=== PATIENT | male | born 1965 | race Caucasian/White ===

== ENCOUNTER 2017-04-18 23:46 | Observation (INO) ==
--- NOTE | 2017-04-19 00:08 | Emergency Department Note ---
Disposition Clinical Impression: Hallucinations Schizophrenia Qualifiers: Schizophrenia type: other Qualified Code(s): F20.89 - Other schizophrenia Disposition: Admitted As Inpatient Condition: Good Referrals: NONE,PCP [Primary Care Provider] - Time of Disposition: 17:40 General Adult HPI - General Chief complaint: ED Psychiatric Symptoms Stated complaint: hallucinations Time Seen by Provider: 04/18/17 23:52 Source: patient, EMS Limitations: no limitations Nursing Notes Reviewed: Yes Vital Signs Reviewed: Yes - History of Present Illness HPI Narrative: 51-year-old male who reports that he has been hearing auditory hallucinations over the last couple of days. He does have a history of schizophrenia and says he has had these before. He is been out of his medications and his out-of- state. He denies any suicidal or homicidal ideation. He states that he otherwise feels well aside from the hallucinations. Denies having any fever or abdominal pain. No nausea or vomiting. He denies having any other significant medical history. Radiation: non-radiation Pain Scale: 0 Improves with: nothing Worsens with: nothing Associated symptoms: Reports: denies other symptoms Treatments Prior to Arrival: none - Related Data Allergies Allergy/AdvReac Type Severity Reaction Status Date / Time No Known Allergies Allergy Verified 04/18/17 23:49 All systems ED: reviewed and negative except as stated. Constitutional: Denies: fever ENT ED: Denies: throat pain Cardiovascular: Denies: chest pain Gastrointestinal: Denies: abdominal pain, nausea, vomiting Genitourinary: Denies: dysuria Musculoskeletal: Denies: back pain Neurological: Denies: headache Endocrine: Denies: fatigue Past Medical History - Past Medical History Medical history: Reports: diabetes, hyperlipidemia, hypertension Psychiatric history: Reports: anxiety, schizophrenia - Social History Smoking Status: Never smoker Alcohol use: Reports: none Drug use: Reports: none Physical Exam - General Limitations: no limitations General appearance: alert, in no apparent distress - Head Head exam: atraumatic - Eye Eye exam: Present: normal appearance, PERRL - ENT ENT exam: normal exam, normal oropharynx - Neck Neck exam: Present: normal inspection, full ROM - Chest Chest inspection: Present: normal inspection - Respiratory Respiratory exam: Present: normal lung sounds bilaterally. Absent: respiratory distress - Cardiovascular Cardiovascular exam: Present: regular rate, normal rhythm - Abdominal Exam Abdominal exam: Present: soft, Non-Tender - Extremities Exam Extremities exam: Present: normal inspection - Neurological Exam Neurological exam: Present: alert, oriented X3 - Psychiatric Psychiatric exam: Present: anxious - Skin Skin exam: Present: warm, dry Course Course Narrative: Will do medical clearance and have psychiatry evaluation Clear for psychiatry evaluation. [address]. This patient has been signed out to the day team to follow up on 1A placement. Vital Signs Temperature 97.6 F 04/18/17 23:50 Pulse Rate 98 04/18/17 23:50 Respiratory Rate 18 04/18/17 23:50 Blood Pressure 136/97 04/18/17 23:50 O2 Sat by Pulse Oximetry 95 04/18/17 23:50 Temperature 97.6 F 04/18/17 23:50 Pulse Rate 98 04/18/17 23:50 Respiratory Rate 18 04/18/17 23:50 Blood Pressure 136/97 04/18/17 23:50 O2 Sat by Pulse Oximetry 95 04/18/17 23:50 Oxygen Delivery Oxygen Delivery Room Air Medical Decision Making - MDM Narrative Medical decision making narrative: Patient was signed out to me by the day physician. Patient came in last evening with schizophrenia issues. Patient was unable to be admitted to psychiatric unit here. They feel he needs placed at a facility in [place] where he lives. Patient is not stable enough immensely to take a [employer] bus back all the way to [place]. Plan at this time is to admit the patient to the hospital for social concerns and then placement tomorrow at a facility in [place]. Social workers following and that was the recommendation as well. We rechecked a blood glucose and it was in the 300s. Patient appears well. No issues at this time. - Medical Records Medical records reviewed: Yes I reviewed the patient's medical records. - Lab Data Lab results reviewed: Yes I reviewed the patient's lab results. Result diagrams: 04/19/17 00:15 04/19/17 00:15 Lab Results 04/19/17 04/19/17 04/19/17 Range/Units 00:15 00:15 00:22 WBC 9.7 (4.3-11.1) K/mcL RBC 5.00 (4.19-5.50) M/mcL Hgb 15.1 (12.9-16.9) g/dL Hct 44.6 (37.5-50.1) % MCV 89.2 (83.0-100.0) fL MCH 30.2 (28.0-33.3) pg MCHC 33.9 (31.6-35.5) g/dL RDW 13.5 (11.5-14.5) % Plt Count 250 (140-400) K/mcL MPV 9.5 (9.4-12.4) fL Immature Gran % 0.5 (0-4) % Seg Neutrophils % 72.7 % Lymphocytes % 14.8 % Monocytes % 9.7 % Eosinophils % 1.8 % Basophils % 0.5 % Neutrophils # 7.1 (1.6-8.9) K/mcL Lymphocytes # 1.4 (0.6-4.6) K/mcL Monocytes # 0.9 (0.0-1.3) K/mcL Eosinophils # 0.2 (0.0-0.6) K/mcL Basophils # 0.1 (0.0-0.2) K/mcL Sodium 136 (136-145) mEq/L Potassium 3.9 (3.5-4.5) mEq/L Chloride 98 (98-109) mEq/L Carbon Dioxide 25 (19-29) mEq/L BUN 14 (8-26) mg/dL Creatinine 1.02 (0.72-1.25) mg/dL Est GFR ( Amer) > 60 (> 60) Est GFR (Non-Af Amer) > 60 (> 60) BUN/Creatinine Ratio 14 (6-26) Glucose 319 H (70-99) mg/dL POC Glucose (58-89) Calculated Osmolality 295 (280-300) Calcium 10.2 (8.6-10.8) mg/dL Urine Color Yellow (Yellow) Urine Clarity Clear (Clear) Urine pH 6.5 (5.0-8.0) pH Units Ur Specific [place] > 1.030 H (1.010-1.025) Urine Protein 100 H (Neg-Trace) mg/dL Urine Glucose (UA) >=1000 H (Normal) mg/dL Urine Ketones Negative (Negative) mg/dL Urine Blood Negative (Negative) Urine Nitrite Negative (Negative) Urine Bilirubin Negative (Negative) Urine Urobilinogen Normal (Normal) mg/dL Ur Leukocyte Esterase Negative (Negative) Urine Microscopic RBC 0-3 (0-3) per hpf Urine Microscopic WBC 0-3 (0-3) per hpf Ur Squamous Epith Cells Many H (None-Few) per lpf Urine Bacteria Few (None-Few) per hpf Hyaline Casts None Seen (None-Few) per lpf Salicylates < 5.0 L (15-30) mg/dL Urine Opiates Screen (Lzmctz=774) ng/mL Acetaminophen < 1.0 L (10-30) mcg/mL Ur Barbiturates Screen (Jvxeso=836) ng/mL Ur Phencyclidine Scrn (Cutoff=25) ng/mL Ur Amphetamines Screen (Cugilr=7561) ng/mL U Benzodiazepines Scrn (Tmbwmr=690) ng/mL Urine Cocaine Screen (Cutoff= 300) ng/mL U Marijuana (THC) Screen (Cutoff = 50) ng/mL Ethyl Alcohol < 10 (0-10) mg/dL 04/19/17 04/19/17 Range/Units 00:22 17:22 WBC (4.3-11.1) K/mcL RBC (4.19-5.50) M/mcL Hgb (12.9-16.9) g/dL Hct (37.5-50.1) % MCV (83.0-100.0) fL MCH (28.0-33.3) pg MCHC (31.6-35.5) g/dL RDW (11.5-14.5) % Plt Count (140-400) K/mcL MPV (9.4-12.4) fL Immature Gran % (0-4) % Seg Neutrophils % % Lymphocytes % % Monocytes % % Eosinophils % % Basophils % % Neutrophils # (1.6-8.9) K/mcL Lymphocytes # (0.6-4.6) K/mcL Monocytes # (0.0-1.3) K/mcL Eosinophils # (0.0-0.6) K/mcL Basophils # (0.0-0.2) K/mcL Sodium (136-145) mEq/L Potassium (3.5-4.5) mEq/L Chloride (98-109) mEq/L Carbon Dioxide (19-29) mEq/L BUN (8-26) mg/dL Creatinine (0.72-1.25) mg/dL Est GFR ( Amer) (> 60) Est GFR (Non-Af Amer) (> 60) BUN/Creatinine Ratio (6-26) Glucose (70-99) mg/dL POC Glucose 316 H (58-89) Calculated Osmolality (280-300) Calcium (8.6-10.8) mg/dL Urine Color (Yellow) Urine Clarity (Clear) Urine pH (5.0-8.0) pH Units Ur Specific [place] (1.010-1.025) Urine Protein (Neg-Trace) mg/dL Urine Glucose (UA) (Normal) mg/dL Urine Ketones (Negative) mg/dL Urine Blood (Negative) Urine Nitrite (Negative) Urine Bilirubin (Negative) Urine Urobilinogen (Normal) mg/dL Ur Leukocyte Esterase (Negative) Urine Microscopic RBC (0-3) per hpf Urine Microscopic WBC (0-3) per hpf Ur Squamous Epith Cells (None-Few) per lpf Urine Bacteria (None-Few) per hpf Hyaline Casts (None-Few) per lpf Salicylates (15-30) mg/dL Urine Opiates Screen Negative (Zknhbh=176) ng/mL Acetaminophen (10-30) mcg/mL Ur Barbiturates Screen Negative (Ijkazy=386) ng/mL Ur Phencyclidine Scrn Negative (Cutoff=25) ng/mL Ur Amphetamines Screen Negative (Jzakty=1286) ng/mL U Benzodiazepines Scrn Negative (Hzyzpy=417) ng/mL Urine Cocaine Screen Negative (Cutoff= 300) ng/mL U Marijuana (THC) Screen Negative (Cutoff = 50) ng/mL Ethyl Alcohol (0-10) mg/dL Attestation Statement - Attestation Attestation: I examined this patient and my medical decision-making was reviewed with the Resident Physician. I agree with the documented findings, disposition and treatment plan as described except to the extent set forth below. Acute psychosis. Patient has history of schizophrenia. Plan to discuss disposition with psychiatry after consultation in the morning with the attending psychiatrist in [place]. Patient was placed on a medical hold at the request of our on-call psychiatrist.
[2017-04-19 00:21] LABS: Basophils # 0.1 K/mcL (0.0-0.2); Basophils % 0.5 %; Eosinophils # 0.2 K/mcL (0.0-0.6); Eosinophils % 1.8 %; Hematocrit 44.6 % (37.5-50.1); Hemoglobin 15.1 g/dL (12.9-16.9); Immature Granulocytes % 0.5 % (0-4); Lymphocytes # 1.4 K/mcL (0.6-4.6); Lymphocytes % 14.8 %; Mean Corpuscular HGB Conc 33.9 g/dL (31.6-35.5); Mean Corpuscular Hemoglobin 30.2 pg (28.0-33.3); Mean Corpuscular Volume 89.2 fL (83.0-100.0); Mean Platelet Volume 9.5 fL (9.4-12.4); Monocytes # 0.9 K/mcL (0.0-1.3); Monocytes % 9.7 %; Neutrophils # 7.1 K/mcL (1.6-8.9); Platelet Count 250 K/mcL (140-400); Red Cell Distribution Width 13.5 % (11.5-14.5); Segmented Neutrophils % 72.7 %
[2017-04-19 00:32] LABS: BUN/Creatinine Ratio 14 (6-26); Blood Urea Nitrogen 14 mg/dL (8-26); Calcium 10.2 mg/dL (8.6-10.8); Carbon Dioxide 25 mEq/L (19-29); Chloride 98 mEq/L (98-109); Glucose 319 mg/dL (70-99); Osmolality,Calculated 295 (280-300); Potassium 3.9 mEq/L (3.5-4.5); Sodium 136 mEq/L (136-145); eGFR For African Americans > 60 (> 60); eGFR For Non-African Americans > 60 (> 60)
[2017-04-19 00:34] LABS: Bilirubin,Urine Negative (Negative); Blood,Urine Negative (Negative); Clarity,Urine Clear (Clear); Color,Urine Yellow (Yellow); Glucose,Urine (UA) >=1000 mg/dL (Normal); Ketones,Urine Negative (Negative); Leukocyte Esterase,Urine Negative (Negative); Nitrite,Urine Negative (Negative); PH,Urine 6.5 pH Units (5.0-8.0); Protein,Urine 100 mg/dL (Neg-Trace); Specific Gravity,Urine > 1.030 (1.010-1.025); Urobilinogen,Urine Normal (Normal)
[2017-04-19 00:35] LABS: Hyaline Casts,Urine None Seen per lpf (None-Few); RBC,Urine 0-3 per hpf (0-3); Squamous Epithelial Cell,Urine Many per lpf (None-Few); WBC,Urine 0-3 per hpf (0-3)
[2017-04-19 00:39] LABS: Amphetamine Screen,Urine Negative ng/mL (Cutoff=1000); Barbiturate Screen,Urine Negative ng/mL (Cutoff=200); Benzodiazepines Screen,Urine Negative ng/mL (Cutoff=200); Cannabinoid Screen,Urine Negative ng/mL (Cutoff = 50); Cocaine Screen,Urine Negative ng/mL (Cutoff= 300); Opiate Screen,Urine Negative ng/mL (Cutoff=300); Phencyclidine Screen,Urine Negative ng/mL (Cutoff=25)
[2017-04-19 00:46] LABS: Bacteria,Urine Few per hpf (None-Few)
[2017-04-19 01:27] LABS: Acetaminophen < 1.0 mcg/mL (10-30); Ethanol < 10 mg/dL (0-10); Salicylate < 5.0 mg/dL (15-30)
[2017-04-19] MEDS ORDERED: OLANZapine 10 MG VIAL IM ONE (05:23)
[2017-04-19] MEDS ORDERED: Acetaminophen 325 MG TABLET PO PRN (21:10)
[2017-04-19] MEDS ORDERED: *HR* HYDROcodone/Acet 5/325 mg TABLET PO PRN (21:10)
[2017-04-19] MEDS ORDERED: *HR* Morphine 2 MG/ML SYRINGE IVP PRN (21:10)
[2017-04-19] MEDS ORDERED: Naloxone 0.4 MG/ML INJ IVP PRN (21:10)
[2017-04-19] MEDS ORDERED: *HR* Promethazine 25 MG/ML VIAL IVP PRN (21:15)
[2017-04-19] MEDS ORDERED: Ondansetron 4 MG/2 ML VIAL IVP PRN (21:15)
[2017-04-19] MEDS ORDERED: *HR* LORazepam 0.5 MG TABLET PO PRN (21:17)
--- NOTE | 2017-04-19 21:31 | Internal Med History&Physical ---
Date of Encounter: 04/19/17 Time of Encounter: 20:30 Assessment and Plan (1) Hallucinations Current visit: Yes Status: Acute Place the pt into Med Surg for observation Cont symptomatic and supportive care SW consulted Will consult Pysch 1 on 1 sitter Reviewed labs - normal WBC, normal electrolytes (2) Schizophrenia Current visit: Yes Status: Acute Will give Ativan and Haldol PRN for agitation cont close monitoring Psych consulted Qualifiers: Schizophrenia type: unspecified Qualified Code(s): F20.9 - Schizophrenia, unspecified (3) HTN (hypertension) Current visit: Yes Status: Acute Stable with out any meds cont close monitoring Qualifiers: Hypertension type: essential hypertension Qualified Code(s): I10 - Essential (primary) hypertension (4) DM2 (diabetes mellitus, type 2) Current visit: Yes Status: Acute will check HbA1C in AM will put him on ISS Qualifiers: Qualified Code(s): E11.9 - Type 2 diabetes mellitus without complications Internal Medicine - H&P: HPI Chief complaint: Auditory hallucinations Admitted From: Emergency Dept Plans for Post Hospital Care: Home History of present illness: Mr. Plummer is a 51 year old male with known PMH of HTN, DM2, GERD, Schizophrenia who is from [place] presented to our ER on 04/18/17 with auditory hallucinations. Pt was not able to go back to [place] by himself and SW working on his case. [facility] ER asked use to admit this pt into medical floor until SW can find a place for him. When I examined the pt at bed side, he is alert, awake and oriented to place and person. He does live by himself in [place], his mother does not want to take him back due to his hallucinations. He did mention that, he started hearing voice 2 days ago, so he took a [employer] bus to [place] and from there he came to [place] by following the voices. He denied any suicidal thoughts / ideation as well as any homicidal ideations. Still has auditory hallucinations Past Med Surg Social Fam HX - Past Medical History Medical history: diabetes, hyperlipidemia, hypertension Psychiatric history: anxiety, schizophrenia - Social History Smoking Status: Never smoker Alcohol use: none Drug use: none - Additional Family History Additional family history: Family hsitory reviewed and non contribuitory to current problem. Internal Medicine - H&P: Meds 3 Allergy/AdvReac Type Severity Reaction Status Date / Time No Known Allergies Allergy Verified 04/18/17 23:49 All Systems PM: A 10-system review of systems was performed and is negative for pertinent findings except as documented above in the HPI. Review of systems: All the systems are reviewed everything is benign except the systems and symptoms I mentioned in the history of present illness - Constitutional Vitals: Temp Pulse Resp BP Pulse Ox 97.6 F 98 18 136/97 95 04/18/17 23:50 04/18/17 23:50 04/18/17 23:50 04/18/17 23:50 04/18/17 23:50 General appearance: Present: A&O X 3, no acute distress, answers questions appropriately - Head Head exam: Present: atraumatic, normal inspection - Neck Neck exam general surgery: Present: supple - Respiratory Respiratory exam: Present: CTAB. Absent: accessory muscle use, rales, rhonchi, wheezes - Cardiovascular Cardiovascular exam: Present: RRR, +S1, +S2. Absent: diastolic murmur, gallop, rubs, systolic murmur - GI/Abdominal GI/Abdominal exam: Present: normal bowel sounds, soft. Absent: rebound, rigid, tenderness - Extremities Exam Extremities exam: Absent: calf tenderness, pedal edema, tenderness - Back Exam Back exam: Absent: CVA tenderness (L), CVA tenderness (R) - Neurological Exam Neurological exam: Present: alert, oriented X3 - Psychiatric Psychiatric exam: Present: anxious. Absent: homicidal ideation, suicidal ideation - Expanded Psychiatric Exam Focused psych exam: Present: restlessness. Absent: paranoid, pressured speech - Skin Skin exam: Absent: rash Internal Med - H&P Results - Labs CBC & Chem 7: 04/19/17 00:15 04/19/17 00:15 Labs: Short CBC 04/19/17 Range/Units 00:15 WBC 9.7 (4.3-11.1) K/mcL Hgb 15.1 (12.9-16.9) g/dL Hct 44.6 (37.5-50.1) % Plt Count 250 (140-400) K/mcL Neutrophils # 7.1 (1.6-8.9) K/mcL BMP 04/19/17 00:15 Sodium 136 Potassium 3.9 Chloride 98 Carbon Dioxide 25 BUN 14 Creatinine 1.02 Glucose 319 H Calcium 10.2 Urine 04/19/17 Range/Units 00:22 Urine Color Yellow (Yellow) Urine Clarity Clear (Clear) Urine pH 6.5 (5.0-8.0) pH Units Ur Specific [place] > 1.030 H (1.010-1.025) Urine Protein 100 H (Neg-Trace) mg/dL Urine Glucose (UA) >=1000 H (Normal) mg/dL
[2017-04-19] MEDS ORDERED: Dextrose Gel 15 GM PO PRN ×2 (21:40)
[2017-04-19] MEDS ORDERED: *HR* Dextrose 50 % in Water (Syg) 50 ML SYRINGE IVP PRN (21:40)
[2017-04-19] MEDS ORDERED: D5% in Water 1,000 ML IVC PRN (21:40)
[2017-04-19] MEDS ORDERED: Insulin LISPRO 300 UNITS/3 ML VIAL SQ SCH (21:45)
[2017-04-19 22:27] LABS: Hemoglobin A1C 8.4 %
[2017-04-20] MEDS: Insulin LISPRO 300 UNITS/3 ML VIAL SQ SCH ×4 (08:46→21:34)
--- NOTE | 2017-04-20 16:08 | Consult Note ---
Date of Encounter: 04/20/17 Time of Encounter: 15:00 Assessment & Recommendation (1) Neuroleptic-induced tardive dyskinesia Current visit: Yes Status: Acute Assessment & Recommendation: This patient has features of neuroleptic induced tardive dyskinesia. He is on a stable regimen of medicines and needs to remain on antipsychotics. Therefore it is necessary to restart all of his antipsychotics. Consistency of the antipsychotics may reduce the dyskinetic movements. He is not a candidate to reduce antipsychotics or discontinue antipsychotics as he has a chronic psychiatric illness and the exacerbation is likely. The patient could be considered for Ingrezza or Autedo valbenezine or duetetrabenezine to medicines that are FDA approved for the treatment of tardive dyskinesia. These may help with oral buccal movements and the distal dyskinetic and choreiform movements . (2) Schizophrenia Current visit: Yes Status: Acute Assessment & Recommendation: The patient has paranoid schizophrenia with multiple auditory hallucinations. He tends to follow these with delusional conviction. It is important to return him to his snf although he resists this. It is necessary therefore to check and see if he has a legal guardian in the [facility]. This would allow for him to return. The history that I have suggest that he has left for other states and been retrieved by the snf to return. It is not clear that he has any family or friends in [place] who could aid her system furthermore psychotic decompensation is more likely in this environment than his home environment. Difficulty in the hospitalization is has been encountered. This patient may need to be transferred to a [facility] such [facility] and then [facility] transfer could be arranged between the [facility] in [place] in [place]. The patient is a voluntary patient requesting to stay in [place]. It is not clear if he has decision-making capacity. There is therefore it is necessary to check up he has a legal guardian in [place]. Please restart the home medicines that are listed at a minimum we can begin Seroquel 300 mg every morning and 600 mg every afternoon and Tegretol 200 mg 3 times a day. A blood level for Tegretol or carbamazepine can be obtained in the next week efforts to reach next of kin have already commenced but should continue Qualifiers: Schizophrenia type: paranoid schizophrenia Qualified Code(s): F20.0 - Paranoid schizophrenia History of Present Illness Requesting Physician: Monisha Khan CNP Reason for consult: History of present illness: Mr. Plummer is a 51 year old male The patient was admitted for auditory hallucinations. History of present illness. I was contacted when the patient presented for admission. He had doubled from his home in [facility] to [place]. He recalls being here many years ago. In 2000 the patient may have developed psychosis and tomasz been treated on one [place] similar unit. The patient cannot find his family cannot locate them. He hears voices and he believes that these are people that he knows and these voices are truly denies that they are related to his imagination. Nonetheless he has conversations avoids eating stays up late and responsive. These are command hallucinations and the commanded him to come to [place] which he complied with. The patient agreed to stay and efforts been made to transfer him back to [facility] where he lives. Apparently he lives in a snf and has a psychiatrist treating him there. He has [facility] and efforts to admit him to another hospital were not helpful. While the patient is willing to stay on the medical floor he is asking to relocate [place]. The patient identifies voices and he can identify his dose of medicine. Specifically he takes Seroquel 300 mg every morning 600 mg every afternoon he takes Tegretol probably 200 mg 3 times a day. He has not been on any other medicines. Over the intervening years that the patient has developed movements The mouth and tongue in the fingers. he has a mouth sore associated with this and has been reported to have protruding tongue movements. He cannot recall being diagnosed with tardive dyskinesia CC: Monisha Khan CNP Past Med Surg Social Fam HX - Past Medical History Medical history: diabetes, hyperlipidemia, hypertension - Social History Smoking Status: Never smoker Alcohol use: none Drug use: none Medications & Allergies Docusate Sodium [Dok] 100 mg PO 1-2XD 04/20/17 [History] Paliperidone [Invega] 6 mg PO QAM 04/20/17 [History] Quetiapine Fumarate [Seroquel] 600 mg PO HS 04/20/17 [History] Trazodone HCl 150 mg PO HS 04/20/17 [History] carBAMazepine [Tegretol] 400 mg PO BID 04/20/17 [History] 3 Allergy/AdvReac Type Severity Reaction Status Date / Time No Known Allergies Allergy Verified 04/18/17 23:49 Mental Status Exam Patient orientation: Yes Person, Yes Time, Yes Place, Yes Circumstance Level of alertness: Alert Patient appearance: Appropriate Behavior: restless, distractible Psychomotor activity: Increased Eye contact: Maintains Eye Contact Mood description: Anxious Speech pattern: Normal rhythm Speech volume: Normal Thought process: [place] Thought content: Yes Paranoid delusion Perceptual disturbances: Yes Auditory hallucinations Attention span: Capable of Sustained Attention Memory description: Immediate Intact, Remote Impaired Patient reliability: Questionable Historian Intelligence estimate: Average Judgment: Limited Insight: Minimal Results - Vital Signs Vital signs: Temp Pulse Resp BP Pulse Ox 97.9 F 96 16 140/89 96 04/20/17 15:36 04/20/17 15:36 04/20/17 15:36 04/20/17 15:36 04/20/17 15:36 - Labs Labs: Laboratory Last Values WBC 9.7 K/mcL (4.3-11.1) 04/19/17 00:15 RBC 5.00 M/mcL (4.19-5.50) 04/19/17 00:15 Hgb 15.1 g/dL (12.9-16.9) 04/19/17 00:15 Hct 44.6 % (37.5-50.1) 04/19/17 00:15 MCV 89.2 fL (83.0-100.0) 04/19/17 00:15 MCH 30.2 pg (28.0-33.3) 04/19/17 00:15 MCHC 33.9 g/dL (31.6-35.5) 04/19/17 00:15 RDW 13.5 % (11.5-14.5) 04/19/17 00:15 Plt Count 250 K/mcL (140-400) 04/19/17 00:15 MPV 9.5 fL (9.4-12.4) 04/19/17 00:15 Immature Gran % 0.5 % (0-4) 04/19/17 00:15 Seg Neutrophils % 72.7 % 04/19/17 00:15 Lymphocytes % 14.8 % 04/19/17 00:15 Monocytes % 9.7 % 04/19/17 00:15 Eosinophils % 1.8 % 04/19/17 00:15 Basophils % 0.5 % 04/19/17 00:15 Neutrophils # 7.1 K/mcL (1.6-8.9) 04/19/17 00:15 Lymphocytes # 1.4 K/mcL (0.6-4.6) 04/19/17 00:15 Monocytes # 0.9 K/mcL (0.0-1.3) 04/19/17 00:15 Eosinophils # 0.2 K/mcL (0.0-0.6) 04/19/17 00:15 Basophils # 0.1 K/mcL (0.0-0.2) 04/19/17 00:15 Sodium 136 mEq/L (136-145) 04/19/17 00:15 Potassium 3.9 mEq/L (3.5-4.5) 04/19/17 00:15 Chloride 98 mEq/L (98-109) 04/19/17 00:15 Carbon Dioxide 25 mEq/L (19-29) 04/19/17 00:15 BUN 14 mg/dL (8-26) 04/19/17 00:15 Creatinine 1.02 mg/dL (0.72-1.25) 04/19/17 00:15 Est GFR ( Amer) > 60 (> 60) 04/19/17 00:15 Est GFR (Non-Af Amer) > 60 (> 60) 04/19/17 00:15 BUN/Creatinine Ratio 14 (6-26) 04/19/17 00:15 Glucose 319 mg/dL (70-99) H 04/19/17 00:15 POC Glucose 307 (58-89) H 04/20/17 15:34 Est Mean Plasma Glucose 194 mg/dl 04/19/17 22:09 Hemoglobin A1c 8.4 % (-5.6) H 04/19/17 22:09 Calculated Osmolality 295 (280-300) 04/19/17 00:15 Calcium 10.2 mg/dL (8.6-10.8) 04/19/17 00:15 Urine Color Yellow (Yellow) 04/19/17 00:22 Urine Clarity Clear (Clear) 04/19/17 00:22 Urine pH 6.5 pH Units (5.0-8.0) 12/14/17 00:22 Ur Specific [place] > 1.030 (1.010-1.025) H 04/19/17 00: Urine Protein 100 mg/dL (Neg-Trace) H 04/19/17: Urine Glucose (UA) >=1000 mg/dL (Normal) H 04/19/17 00: Urine Ketones Negative mg/dL (Negative) 04/19/17 00: Urine Blood Negative (Negative) 04/19/17: Urine Nitrite Negative (Negative) 04/19/17 Urine Bilirubin Negative (Negative) 04/19/17: Urine Urobilinogen Normal mg/dL (Normal) 04/19/17: Ur Leukocyte Esterase Negative (Negative) 04/19/17: Urine Microscopic RBC 0-3 per hpf (0-3) 04/19/17: Urine Microscopic WBC 0-3 per hpf (0-3) 04/19/17: Ur Squamous Epith Cells Many per lpf (None-Few) H 04/19/17: Urine Bacteria Few per hpf (None-Few) 04/19/17: Hyaline Casts None Seen per lpf (None-Few) 04/19/17 00: Salicylates < 5.0 mg/dL (15-30) L 04/19/17 00:15 Urine Opiates Screen Negative ng/mL (Urxmtn=970) 04/19/17 00: Acetaminophen < 1.0 mcg/mL (10-30) L 04/19/17 00:15 Ur Barbiturates Screen Negative ng/mL (Bouhuj=424) 04/19/17 00:22 Ur Phencyclidine Scrn Negative ng/mL (Cutoff=25) 04/19/17 00:22 Ur Amphetamines Screen Negative ng/mL (Bzakhs=0244) 04/19/17 00: U Benzodiazepines Scrn Negative ng/mL (Wopane=585) 04/19/17 00:22 Urine Cocaine Screen Negative ng/mL (Cutoff= 300) 04/19/17 00: U Marijuana (THC) Screen Negative ng/mL (Cutoff = 50) 04/19/17 00: Ethyl Alcohol < 10 mg/dL (0-10) 04/19/17 00:15 Consult Discharge Plan - Plan
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
[2017-04-20] MEDS ORDERED: D5% in Water 1,000 ML IVC PRN (17:31)
[2017-04-20] MEDS: carBAMazepine 200 MG TABLET PO SCH (21:33)
[2017-04-20] MEDS: traZODone 50 MG TABLET PO SCH (21:33)
[2017-04-21] MEDS: carBAMazepine 200 MG TABLET PO SCH ×2 (09:15→21:26)
[2017-04-21] MEDS: Insulin LISPRO 300 UNITS/3 ML VIAL SQ SCH ×4 (09:15→21:27)
[2017-04-21] MEDS ORDERED: Insulin LISPRO 300 UNITS/3 ML VIAL SQ STA (11:13)
--- NOTE | 2017-04-21 15:56 | Internal Med Progress Note ---
Date of Encounter: 04/21/17 Time of Encounter: 15:54 - Assessment and plan (1) Schizophrenia Current Visit: Yes Status: Acute Assessment and plan: per hx. Evaluated by Psychiatry who noted paranoid schizophrenia with multiple auditory hallucinations. Psychiatry recommends returning him to his longterm however patient is refusing. Patient reportedly has guardian and [place] however patient states that he was dropped by the court appointed guardian and he was not picked up by another guardian. Patient appears to be alert and oriented, competent and of sound mind. bulk intake worker tempting to contact next of kin. Continue home medication per psychiatry recommendations. Symptoms appear to be controlled at this time. He is agreeable to stay on a voluntary basis. Continue home Tegretol, Seroquel and trazodone. Qualifiers: Schizophrenia type: paranoid schizophrenia Qualified Code(s): F20.0 - Paranoid schizophrenia (2) Neuroleptic-induced tardive dyskinesia Current Visit: Yes Status: Acute Assessment and plan: With lip smacking and tongue rolling. Home antipsychotics resumed. (3) DM2 (diabetes mellitus, type 2) Current Visit: Yes Status: Acute Assessment and plan: per history but not currently on treatment. Hgb A1c 8.4%. Blood sugars remain elevated despite low-dose SSI. Add long-acting insulin. Monitor blood sugar and titrate PRN Qualifiers: Qualified Code(s): E11.9 - Type 2 diabetes mellitus without complications (4) HTN (hypertension) Current Visit: Yes Status: Acute Assessment and plan: per hx but not on BP medications. BP variable but acceptable off BP medications. Monitor BP Qualifiers: Hypertension type: essential hypertension Qualified Code(s): I10 - Essential (primary) hypertension - Subjective Interval history: Seen and examined at bedside. He is drowsy but oriented. He thinks he has home medication as well as make it him so sleepy. Says he had uneventful night. Denies all complaints except for being tired. No chest pain no shortness of breath. He is still agreeable to stay on a voluntary basis - Constitutional Vitals: Temp Pulse Resp BP Pulse Ox 97.8 F 80 16 106/73 95 04/21/17 15:44 04/21/17 15:44 04/21/17 15:44 04/21/17 15:44 04/21/17 15:44 General appearance: Present: A&O X 3, morbidly obese, no acute distress, answers questions appropriately Exam: Drowsy - Head Head exam: Present: atraumatic, normocephalic - Eye Eye exam: Present: PERRL, conjuntiva pink, sclera anicteric Pupils: Present: PERRL - Neck Neck exam general surgery: Present: supple, trachea midline. Absent: lymphadenopathy - Respiratory Respiratory exam: Present: CTAB. Absent: accessory muscle use, rales, rhonchi, wheezes - Cardiovascular Cardiovascular exam: Present: RRR, +S1, +S2. Absent: diastolic murmur, gallop, rubs, systolic murmur - GI/Abdominal GI/Abdominal exam: Present: normal bowel sounds, soft, no peritoneal signs. Absent: distended, tenderness - Extremities Exam Extremities exam: Present: warm, radial pulses palpable and symmetrical. Absent : calf tenderness, cyanotic, pedal edema - Neurological Exam Neurological exam: Present: CN II-XII intact, oriented X3, no focal deficits. Absent: pronater drift, facial droop, speech deficit - Skin Skin exam: Present: dry, intact Internal Medicine: Result - Labs CBC & Chem 7: 04/19/17 00:15 04/19/17 00:15 Consult Discharge Plan - Plan Referrals: NONE,PCP [Primary Care Provider] -
[2017-04-21] MEDS: traZODone 50 MG TABLET PO SCH (21:26)
[2017-04-21] MEDS: Insulin DETEMIR 100 UNIT/ML X5UNITS SQ SCH (21:26)
[2017-04-22 04:40] LABS: BUN/Creatinine Ratio 19 (6-26); Blood Urea Nitrogen 21 mg/dL (8-26); Calcium 9.3 mg/dL (8.6-10.8); Carbon Dioxide 28 mEq/L (19-29); Chloride 101 mEq/L (98-109); Glucose 241 mg/dL (70-99); Osmolality,Calculated 291 (280-300); Potassium 4.2 mEq/L (3.5-4.5); Sodium 135 mEq/L (136-145); eGFR For African Americans > 60 (> 60); eGFR For Non-African Americans > 60 (> 60)
[2017-04-22 04:48] LABS: Carbamazepine (Tegretol) 6.3 mcg/mL (4.0-12.0)
[2017-04-22] MEDS: *HR* Enoxaparin 40 MG/0.4 ML SYRINGE SQ SCH (06:15)
[2017-04-22] MEDS: Insulin LISPRO 300 UNITS/3 ML VIAL SQ SCH ×4 (08:53→20:50)
[2017-04-22] MEDS: carBAMazepine 200 MG TABLET PO SCH ×2 (08:54→20:49)
--- NOTE | 2017-04-22 15:01 | Internal Med Progress Note ---
Date of Encounter: 04/22/17 Time of Encounter: 14:58 - Assessment and plan (1) Schizophrenia Current Visit: Yes Status: Acute Assessment and plan: per hx. Evaluated by Psychiatry who noted paranoid schizophrenia with multiple auditory hallucinations. Psychiatry recommends returning him to his [facility] however patient is refusing. Patient reportedly has guardian and [place] however patient states that he was dropped by the court appointed guardian and he was not picked up by another guardian. Patient appears to be alert and oriented, competent and of sound mind. combination worker tempting to contact next of kin. Continue home medication per psychiatry recommendations. Symptoms appear to be controlled at this time. He is agreeable to stay on a voluntary basis. Continue home Tegretol, Seroquel and trazodone. Qualifiers: Schizophrenia type: paranoid schizophrenia Qualified Code(s): F20.0 - Paranoid schizophrenia (2) Neuroleptic-induced tardive dyskinesia Current Visit: Yes Status: Acute Assessment and plan: With lip smacking and tongue rolling. Home antipsychotics resumed. (3) DM2 (diabetes mellitus, type 2) Current Visit: Yes Status: Acute Assessment and plan: per history but not currently on treatment. Hgb A1c 8.4%. Blood sugars remain elevated despite low-dose SSI. Add long-acting insulin. Blood sugars remain elevated on 04/22. Increase Levemir. Monitor blood sugar and titrate PRN Qualifiers: Qualified Code(s): E11.9 - Type 2 diabetes mellitus without complications (4) HTN (hypertension) Current Visit: Yes Status: Acute Assessment and plan: per hx but not on BP medications. BP variable but acceptable off BP medications. Monitor BP Qualifiers: Hypertension type: essential hypertension Qualified Code(s): I10 - Essential (primary) hypertension (5) DVT prophylaxis Current Visit: Yes Status: Acute Assessment and plan: lovenox - Time Spent With Patient less than 15 minutes - Subjective Interval history: Seen and examined at bedside. Remains drowsy but easy to arouse and not as lethargic as yesterday's exam. Patient states he has not slept in days prior to hospitalization. He still is agreeable to stay on a voluntary basis and adamant that he is not returning to [place]. He has no complaints. Specifically denies chest pain, no shortness of breath. Hears voices at different times throughout the day. No SI or HI. - Constitutional Vitals: Temp Pulse Resp BP Pulse Ox 97.9 F 84 16 101/68 93 04/22/17 10:25 04/22/17 10:25 04/22/17 10:25 04/22/17 10:25 04/22/17 10:25 General appearance: Present: A&O X 3, morbidly obese, no acute distress, answers questions appropriately - Head Head exam: Present: atraumatic, normocephalic - Eye Eye exam: Present: PERRL, conjuntiva pink, sclera anicteric Pupils: Present: PERRL - Neck Neck exam general surgery: Present: supple, trachea midline. Absent: lymphadenopathy - Respiratory Respiratory exam: Present: CTAB. Absent: accessory muscle use, rales, rhonchi, wheezes - Cardiovascular Cardiovascular exam: Present: RRR, +S1, +S2. Absent: diastolic murmur, gallop, rubs, systolic murmur - GI/Abdominal GI/Abdominal exam: Present: normal bowel sounds, soft, no peritoneal signs. Absent: distended, tenderness - Extremities Exam Extremities exam: Present: warm, radial pulses palpable and symmetrical. Absent : calf tenderness, cyanotic, pedal edema - Neurological Exam Neurological exam: Present: CN II-XII intact, oriented X3, no focal deficits. Absent: pronater drift, facial droop, speech deficit - Skin Skin exam: Present: dry, intact Internal Medicine: Result - Labs CBC & Chem 7: 04/19/17 00:15 04/22/17 04:08 Labs: BMP 04/22/17 04:08 Sodium 135 L Potassium 4.2 Chloride 101 Carbon Dioxide 28 BUN 21 Creatinine 1.10 Glucose 241 H Calcium 9.3 Consult Discharge Plan - Plan Referrals: NONE,PCP [Primary Care Provider] -
[2017-04-22] MEDS: traZODone 50 MG TABLET PO SCH (20:49)
[2017-04-22] MEDS: Insulin DETEMIR 100 UNIT/ML X5UNITS SQ SCH (20:50)
[2017-04-23] MEDS: *HR* Enoxaparin 40 MG/0.4 ML SYRINGE SQ SCH (06:00)
[2017-04-23 06:16] LABS: Hematocrit 42.9 % (37.5-50.1); Hemoglobin 14.5 g/dL (12.9-16.9); Mean Corpuscular HGB Conc 33.8 g/dL (31.6-35.5); Mean Corpuscular Hemoglobin 30.6 pg (28.0-33.3); Mean Corpuscular Volume 90.5 fL (83.0-100.0); Mean Platelet Volume 9.7 fL (9.4-12.4); Platelet Count 204 K/mcL (140-400); Red Blood Count 4.74 M/mcL (4.19-5.50); Red Cell Distribution Width 13.4 % (11.5-14.5)
[2017-04-23] MEDS: carBAMazepine 200 MG TABLET PO SCH ×2 (08:25→21:11)
[2017-04-23] MEDS: Insulin LISPRO 300 UNITS/3 ML VIAL SQ SCH ×4 (08:26→21:10)
--- NOTE | 2017-04-23 12:58 | Psychiatry Progress Note ---
Date of Encounter: 04/23/17 Time of Encounter: 12:40 Subjective Interval history: Jonh is seen today for follow-up of his schizophrenia. Patient is more organized today compared to initial assessment but she needs to report some delusional content while remaining delusional, paranoia especially about his previous guardian. He claims to have family in the area by his unable to give numbers. He is fixated on security compliance specialist of various counties here in [place]. He states he has been here for 4 days but is unable to give detail about how he got to [place]. He does not want to go back to [place] and states "I will kill myself if you send me back there." He does admit to continued auditory hallucinations with voices "talking to each other." He also reports intermittent suicidal ideation without plan except if he was to be sent back to [place]. Review of Systems Constitutional: Denies: fever, chills, weakness, weight change Eyes: Denies: eye pain, vision change Ears, Nose, Throat: Denies: ear pain, throat pain, dental pain, hearing loss, congestion Cardiovascular: Denies: chest pain, palpitations, dyspnea on exertion Respiratory: Denies: cough, dyspnea, wheezes Gastrointestinal: Denies: abdominal pain, nausea, vomiting, diarrhea, constipation Musculoskeletal: Denies: joint swelling, joint pain Neurological: Denies: headache, weakness, numbness, memory loss Psychiatric: Reports: depression, abnormal sleep pattern, suicidal ideation, auditory hallucinations, visual hallucinations, irritability Objective: Exam Patient orientation: Yes Person, Yes Place Level of alertness: Alert Patient appearance: Appropriate Behavior: guarded Psychomotor activity: Normal Eye contact: Minimal Contact Mood description: Euthymic/stable Affect description: blunted Speech pattern: Rambling Speech volume: Normal Thought process: Intact Thought content: Yes Preoccupation, Yes Paranoid delusion Perceptual disturbances: No Reacting to internal stimuli, Yes Auditory hallucinations, Yes Visual hallucinations Judgment: Limited Insight: Minimal Results - Vital Signs Vital Signs: Temp Pulse Resp BP Pulse Ox 98.3 F 69 16 122/85 93 04/23/17 11:33 04/23/17 11:33 04/23/17 11:33 04/23/17 11:33 04/23/17 11:33 - Labs Labs: Laboratory Results - last 24 hr 04/22/17 04/22/17 04/22/17 06:30 10:24 15:01 WBC RBC Hgb Hct MCV MCH MCHC RDW Plt Count MPV POC Glucose 203 H 245 H 284 H 04/22/17 04/23/17 18:49 05:49 WBC 6.3 RBC 4.74 Hgb 14.5 Hct 42.9 MCV 90.5 MCH 30.6 MCHC 33.8 RDW 13.4 Plt Count 204 MPV 9.7 POC Glucose 238 H Assessment and Plan (1) Schizophrenia Current visit: Yes Status: Acute Additional Plan: Would recommend inpatient hospitalization as patient is still having some paranoia and auditory hallucinations. Ideally we would coordinate with guardian or person in charge of medical care to admit to psychiatric floor. We may have to pink slip patient down to 1A to further coordinate care. Qualifiers: Schizophrenia type: paranoid schizophrenia Qualified Code(s): F20.0 - Paranoid schizophrenia Consult Discharge Plan - Plan Referrals: NONE,PCP [Primary Care Provider] -
--- NOTE | 2017-04-23 14:28 | Internal Med Progress Note ---
Date of Encounter: 04/23/17 Time of Encounter: 14:24 - Assessment and plan (1) Schizophrenia Current Visit: Yes Status: Acute Assessment and plan: per hx. Evaluated by Psychiatry who noted paranoid schizophrenia with multiple auditory hallucinations. Psychiatry recommends returning him to his [facility] however patient is refusing. Patient reportedly has guardian and [place] however patient states that he was dropped by the court appointed guardian and he was not picked up by another guardian. Patient appears to be alert and oriented, competent and of sound mind. railway track worker tempting to contact next of kin. Continue home medication per psychiatry recommendations. Symptoms appear to be controlled at this time. He is agreeable to stay on a voluntary basis. Continue home Tegretol, Seroquel and trazodone. Reevaluated by psychiatry 04/23 and they are recommending inpatient psychiatric hospitalization. We will need to coordinate with guardian for person in charge of medical care and [place]. Patient is not allowed to leave AMA, he is agreeable to stay voluntarily. Will need to be pink slipped if he tries to leave AMA Qualifiers: Schizophrenia type: paranoid schizophrenia Qualified Code(s): F20.0 - Paranoid schizophrenia (2) Neuroleptic-induced tardive dyskinesia Current Visit: Yes Status: Acute Assessment and plan: With lip smacking and tongue rolling. Home antipsychotics resumed. (3) DM2 (diabetes mellitus, type 2) Current Visit: Yes Status: Acute Assessment and plan: per history but not currently on treatment. Hgb A1c 8.4%. Blood sugars remain elevated despite low-dose SSI. Add long-acting insulin. Blood sugars remain elevated on 04/22. Monitor blood sugar and titrate PRN. Levemir increased . Qualifiers: Qualified Code(s): E11.9 - Type 2 diabetes mellitus without complications (4) HTN (hypertension) Current Visit: Yes Status: Acute Assessment and plan: per hx but not on BP medications. BP variable but acceptable off BP medications. Monitor BP Qualifiers: Hypertension type: essential hypertension Qualified Code(s): I10 - Essential (primary) hypertension (5) DVT prophylaxis Current Visit: Yes Status: Acute Assessment and plan: lovenox - Subjective Interval history: Seen and examined at bedside. Not quite as drowsy as he was yesterday. Appears no coherent and responsive. Says he is tired otherwise she has no complaints. He is still agreeable to stay on a voluntary basis. He is aware that he is not allowed to leave discharge AGAINST MEDICAL ADVICE. - Constitutional Vitals: Temp Pulse Resp BP Pulse Ox 98.3 F 69 16 122/85 93 04/23/17 11:33 04/23/17 11:33 04/23/17 11:33 04/23/17 11:33 04/23/17 11:33 General appearance: Present: A&O X 3, morbidly obese, no acute distress, answers questions appropriately - Head Head exam: Present: atraumatic, normocephalic - Eye Eye exam: Present: PERRL, conjuntiva pink, sclera anicteric Pupils: Present: PERRL - Neck Neck exam general surgery: Present: supple, trachea midline. Absent: lymphadenopathy - Respiratory Respiratory exam: Present: CTAB. Absent: accessory muscle use, rales, rhonchi, wheezes - Cardiovascular Cardiovascular exam: Present: RRR, +S1, +S2. Absent: diastolic murmur, gallop, rubs, systolic murmur - GI/Abdominal GI/Abdominal exam: Present: normal bowel sounds, soft, no peritoneal signs. Absent: distended, tenderness - Extremities Exam Extremities exam: Present: warm, radial pulses palpable and symmetrical. Absent : calf tenderness, cyanotic, pedal edema - Neurological Exam Neurological exam: Present: CN II-XII intact, oriented X3, no focal deficits. Absent: pronater drift, facial droop, speech deficit - Skin Skin exam: Present: dry, intact Internal Medicine: Result - Labs CBC & Chem 7: 04/23/17 05:49 04/22/17 04:08 Labs: Short CBC 04/23/17 Range/Units 05:49 WBC 6.3 (4.3-11.1) K/mcL Hgb 14.5 (12.9-16.9) g/dL Hct 42.9 (37.5-50.1) % Plt Count 204 (140-400) K/mcL Consult Discharge Plan - Plan Referrals: NONE,PCP [Primary Care Provider] -
[2017-04-23] MEDS ORDERED: Insulin DETEMIR 100 UNIT/ML X5UNITS SQ SCH (21:00)
[2017-04-23] MEDS: traZODone 50 MG TABLET PO SCH (21:11)
[2017-04-24] MEDS: *HR* Enoxaparin 40 MG/0.4 ML SYRINGE SQ SCH (06:03)
[2017-04-24] MEDS: carBAMazepine 200 MG TABLET PO SCH ×2 (10:05→20:41)
[2017-04-24] MEDS: Insulin LISPRO 300 UNITS/3 ML VIAL SQ SCH ×4 (10:05→20:42)
--- NOTE | 2017-04-24 12:42 | Psychiatry Progress Note ---
Date of Encounter: 04/24/17 Time of Encounter: 12:25 Subjective Interval history: Patient is seen today for follow-up. He states that he is having a lot of anxiety. He states he is hearing voices and he is having trouble walking out what they are saying. They are distressing to him. He does not think that his current dose of medications is working out well. He denies that he wants to hurt himself but states he feels frustrated about meds not working. hand leather trimmer was appointed for patient staff is awaiting instructions from this person on how to proceed in terms of his mental health treatment. Review of Systems Psychiatric: Reports: depression, abnormal sleep pattern, auditory hallucinations, visual hallucinations, irritability Objective: Exam Patient orientation: Yes Person, Yes Place Level of alertness: Alert Patient appearance: Unkempt Behavior: cooperative, restless Psychomotor activity: Increased Eye contact: Minimal Contact Mood description: Anxious Affect description: anxious Speech pattern: Normal rate, Normal rhythm, Normal tone Speech volume: Normal Thought process: Circumstantial Thought content: Yes Preoccupation Perceptual disturbances: Yes Reacting to internal stimuli, Yes Auditory hallucinations Judgment: Limited Insight: Minimal Results - Vital Signs Vital Signs: Temp Pulse Resp BP Pulse Ox 98.0 F 91 18 156/106 94 04/24/17 11:51 04/24/17 11:51 04/24/17 11:51 04/24/17 11:51 04/24/17 11:51 - Labs Labs: Laboratory Results - last 24 hr 04/23/17 04/23/17 11:51 20:28 POC Glucose 268 H 276 H Assessment and Plan (1) Schizophrenia Current visit: Yes Status: Acute Plan: Continue hospitalization, Close observation, Suicide Precautions per unit protocol, Monitor sleep, Monitor appetite Additional Plan: We will adjust Seroquel to help with continued psychosis. We will wait on the recommendation and approval for admission to psych unit or transfer to [place] for further care. Monitor closely. Risks, benefits, side effects, alternatives discussed w/pt: Yes Patient agreeable to treatment: Yes Qualifiers: Schizophrenia type: paranoid schizophrenia Qualified Code(s): F20.0 - Paranoid schizophrenia Consult Discharge Plan - Plan Referrals: NONE,PCP [Primary Care Provider] -
--- NOTE | 2017-04-24 16:16 | Internal Med Progress Note ---
Date of Encounter: 04/24/17 Time of Encounter: 16:10 - Assessment and plan (1) Schizophrenia Current Visit: Yes Status: Acute Assessment and plan: per hx; lives in shared living housing in [place]. Has known history of schizophrenia. He was found at local gas station decompensated with active hallucinations. He apparently took a Greyhound from [place] to [place] where he allegedly has family members. Evaluated by Psychiatry who noted paranoid schizophrenia with multiple auditory hallucinations. Psychiatry recommends returning him to his detention however patient is refusing. He is a dominguez of the [facility], currently does not have a guardian home however a auto body shop manager was just appointed to patient on 04/24. Psychiatry recommending inpatient psychiatric unit either here at [facility] or return to [place]. Awaiting to hear from [place] Court system. Continue home medications. He is agreeable to stay on a voluntary basis however if he would try to leave [place] on the he would need to be pink slipped. Qualifiers: Schizophrenia type: paranoid schizophrenia Qualified Code(s): F20.0 - Paranoid schizophrenia (2) Neuroleptic-induced tardive dyskinesia Current Visit: Yes Status: Acute Assessment and plan: With lip smacking and tongue rolling. Home antipsychotics resumed. (3) DM2 (diabetes mellitus, type 2) Current Visit: Yes Status: Acute Assessment and plan: per history but not currently on treatment. Hgb A1c 8.4%. Blood sugars remain elevated despite low-dose SSI. Blood sugars remain elevated despite increase in long-acting insulin. Continue to monitor blood sugar and titrate PRN. Long- acting increased 04/24 Qualifiers: Qualified Code(s): E11.9 - Type 2 diabetes mellitus without complications (4) HTN (hypertension) Current Visit: Yes Status: Acute Assessment and plan: per hx but not on BP medications. BP variable but acceptable off BP medications. Monitor BP Qualifiers: Hypertension type: essential hypertension Qualified Code(s): I10 - Essential (primary) hypertension (5) DVT prophylaxis Current Visit: Yes Status: Acute Assessment and plan: lovenox - Subjective Interval history: Seen and examined at bedside. Sitting up on edge of bed. Says he is not as tired as he was yesterday. Uneventful night. He still trying to get a hold of his family members. He is aware that he is not allowed to leave AGAINST MEDICAL ADVICE and he is agreeable to stay on a voluntary basis. No chest pain , no shortness of breath. He does hear voices talking to each other in his head. Denies SI/HI. - Constitutional Vitals: Temp Pulse Resp BP Pulse Ox 97.9 F 82 17 144/89 94 04/24/17 15:21 04/24/17 15:21 04/24/17 15:21 04/24/17 15:21 04/24/17 15:21 General appearance: Present: A&O X 3, morbidly obese, no acute distress, answers questions appropriately - Head Head exam: Present: atraumatic, normocephalic - Eye Eye exam: Present: PERRL, conjuntiva pink, sclera anicteric Pupils: Present: PERRL - Neck Neck exam general surgery: Present: supple, trachea midline. Absent: lymphadenopathy - Respiratory Respiratory exam: Present: CTAB. Absent: accessory muscle use, rales, rhonchi, wheezes - Cardiovascular Cardiovascular exam: Present: RRR, +S1, +S2. Absent: diastolic murmur, gallop, rubs, systolic murmur - GI/Abdominal GI/Abdominal exam: Present: normal bowel sounds, soft, no peritoneal signs. Absent: distended, tenderness - Extremities Exam Extremities exam: Present: warm, radial pulses palpable and symmetrical. Absent : calf tenderness, cyanotic, pedal edema - Neurological Exam Neurological exam: Present: CN II-XII intact, oriented X3, no focal deficits. Absent: pronater drift, facial droop, speech deficit - Skin Skin exam: Present: dry, intact Internal Medicine: Result - Labs CBC & Chem 7: 04/23/17 05:49 04/22/17 04:08 Consult Discharge Plan - Plan Referrals: NONE,PCP [Primary Care Provider] -
[2017-04-24] MEDS: traZODone 50 MG TABLET PO SCH (20:41)
[2017-04-24] MEDS: Insulin DETEMIR 100 UNIT/ML X5UNITS SQ SCH (20:41)
[2017-04-25 05:34] LABS: BUN/Creatinine Ratio 16 (6-26); Blood Urea Nitrogen 15 mg/dL (6-20); Calcium 9.4 mg/dL (8.6-10.3); Carbon Dioxide 26 mEq/L (23-29); Chloride 99 mEq/L (98-107); Glucose 232 mg/dL (70-105); Osmolality,Calculated 286 (280-300); Potassium 4.1 mEq/L (3.5-5.1); Sodium 134 mEq/L (136-145); eGFR For African Americans > 60 (> 60); eGFR For Non-African Americans > 60 (> 60)
[2017-04-25] MEDS: *HR* Enoxaparin 40 MG/0.4 ML SYRINGE SQ SCH (05:52)
[2017-04-25] MEDS: carBAMazepine 200 MG TABLET PO SCH ×2 (08:03→20:38)
[2017-04-25] MEDS: Insulin LISPRO 300 UNITS/3 ML VIAL SQ SCH ×4 (08:04→20:39)
--- NOTE | 2017-04-25 12:27 | Psychiatry Progress Note ---
Date of Encounter: 04/25/17 Time of Encounter: 11:30 Subjective Interval history: Patient is seen today for follow-up. He remains anxious at times. He continues to report auditory hallucinations. He is cooperative with lanced 2 potentially admitted for to psychiatry for further medication changes. He is aware we are waiting on his new guardian to give consent for potential inpatient psychiatric admission. Review of Systems Psychiatric: Reports: depression, abnormal sleep pattern, auditory hallucinations, visual hallucinations, irritability Objective: Exam Patient orientation: Yes Person, Yes Place Level of alertness: Alert Patient appearance: Appropriate Behavior: calm, cooperative Psychomotor activity: Normal Eye contact: Minimal Contact Mood description: Depressed Affect description: flat Speech pattern: Normal rate, Normal rhythm, Normal tone Speech volume: Normal Thought process: Intact Thought content: No Suicidal ideation, No Homicidal ideation Perceptual disturbances: No Reacting to internal stimuli, Yes Auditory hallucinations, Yes Visual hallucinations Judgment: Limited Insight: Minimal Results - Vital Signs Vital Signs: Temp Pulse Resp BP Pulse Ox 98.8 F 84 18 148/96 93 04/25/17 11:38 04/25/17 11:38 04/25/17 11:38 04/25/17 11:38 04/25/17 11:38 - Labs Labs: Laboratory Results - last 24 hr 04/23/17 04/24/17 04/24/17 15:19 07:03 11:36 Sodium Potassium Chloride Carbon Dioxide BUN Creatinine Est GFR ( Amer) Est GFR (Non-Af Amer) BUN/Creatinine Ratio Glucose POC Glucose 211 H 220 H 292 H Calculated Osmolality Calcium 04/24/17 04/25/17 16:31 04:25 Sodium 134 L Potassium 4.1 Chloride 99 Carbon Dioxide 26 BUN 15 Creatinine 0.92 Est GFR ( Amer) > 60 Est GFR (Non-Af Amer) > 60 BUN/Creatinine Ratio 16 Glucose 232 H POC Glucose 180 H Calculated Osmolality 286 Calcium 9.4 Assessment and Plan (1) Schizophrenia Current visit: Yes Status: Acute Plan: Continue hospitalization Additional Plan: We will wait on the recommendation and approval for admission to psych unit or transfer to [place] for further care. Monitor closely. Risks, benefits, side effects, alternatives discussed w/pt: Yes Patient agreeable to treatment: Yes Qualifiers: Schizophrenia type: paranoid schizophrenia Qualified Code(s): F20.0 - Paranoid schizophrenia Consult Discharge Plan - Plan Referrals: NONE,PCP [Primary Care Provider] -
--- NOTE | 2017-04-25 17:03 | Internal Med Progress Note ---
Date of Encounter: 04/25/17 Time of Encounter: 16:59 - Assessment and plan (1) Schizophrenia Current Visit: Yes Status: Acute Assessment and plan: per hx; lives in shared living housing in [place]. He was found [place] local gas station decompensated with active hallucinations. He apparently took a Greyhound from [place] to [place] where he allegedly has family members. Evaluated by Psychiatry who noted paranoid schizophrenia with multiple auditory hallucinations. He is a dominguez of the state [facility], currently does not have a guardian. A pen or pencil assembly machine operator was appointed to patient on 04/24/[address] for emergency guardian placement. Psychiatry recommending inpatient psychiatric unit either here at [facility] or return to [place]. Of note , patient is effusing to return to [place]. States he will kill himself if he is made to go back to [place]. Awaiting to hear from [place] Court system. Continue home medications. Home Seroquel adjusted by psychiatry due to increased anxiety. He is agreeable to stay on a voluntary basis however if he would try to leave [place] on the he would need to be pink slipped. Qualifiers: Schizophrenia type: paranoid schizophrenia Qualified Code(s): F20.0 - Paranoid schizophrenia (2) Neuroleptic-induced tardive dyskinesia Current Visit: Yes Status: Acute Assessment and plan: With lip smacking and tongue rolling. Home antipsychotics resumed. (3) DM2 (diabetes mellitus, type 2) Current Visit: Yes Status: Acute Assessment and plan: per history but not currently on treatment. Hgb A1c 8.4%. Blood sugars remain elevated despite low-dose SSI. Blood sugars remain elevated despite increase in long-acting insulin. Continue to monitor blood sugar and titrate PRN. Qualifiers: Qualified Code(s): E11.9 - Type 2 diabetes mellitus without complications (4) HTN (hypertension) Current Visit: Yes Status: Acute Assessment and plan: per hx but not on BP medications. BP variable and initially acceptable however trending up. Start low-dose amlodipine. Monitor BP and titrate PRN Qualifiers: Hypertension type: essential hypertension Qualified Code(s): I10 - Essential (primary) hypertension (5) DVT prophylaxis Current Visit: Yes Status: Acute Assessment and plan: lovenox - Subjective Interval history: Seen and examined at bedside. Says he is anxious at times and does not feel the increase in Seroquel is helping just yet. He was able to make contact with his sister. He is still adamant he is not returning to [place] and states he will kill himself if he is made to do so. No SI/HI at this time. - Constitutional Vitals: Temp Pulse Resp BP Pulse Ox 97.9 F 88 17 159/99 94 04/25/17 15:33 04/25/17 15:33 04/25/17 15:33 04/25/17 15:33 04/25/17 15:33 General appearance: Present: A&O X 3, morbidly obese, no acute distress, answers questions appropriately - Head Head exam: Present: atraumatic, normocephalic - Eye Eye exam: Present: PERRL, conjuntiva pink, sclera anicteric Pupils: Present: PERRL - Neck Neck exam general surgery: Present: supple, trachea midline. Absent: lymphadenopathy - Respiratory Respiratory exam: Present: CTAB. Absent: accessory muscle use, rales, rhonchi, wheezes - Cardiovascular Cardiovascular exam: Present: RRR, +S1, +S2. Absent: diastolic murmur, gallop, rubs, systolic murmur - GI/Abdominal GI/Abdominal exam: Present: normal bowel sounds, soft, no peritoneal signs. Absent: distended, tenderness - Extremities Exam Extremities exam: Present: warm, radial pulses palpable and symmetrical. Absent : calf tenderness, cyanotic, pedal edema - Neurological Exam Neurological exam: Present: CN II-XII intact, oriented X3, no focal deficits. Absent: pronater drift, facial droop, speech deficit - Skin Skin exam: Present: dry, intact Internal Medicine: Result - Labs CBC & Chem 7: 04/23/17 05:49 04/25/17 04:25 Labs: BMP 04/25/17 04:25 Sodium 134 L Potassium 4.1 Chloride 99 Carbon Dioxide 26 BUN 15 Creatinine 0.92 Glucose 232 H Calcium 9.4 Consult Discharge Plan - Plan Referrals: NONE,PCP [Primary Care Provider] -
[2017-04-25] MEDS: Insulin DETEMIR 100 UNIT/ML X5UNITS SQ SCH (20:39)
[2017-04-25] MEDS: traZODone 50 MG TABLET PO SCH (20:39)
[2017-04-26] MEDS: *HR* Enoxaparin 40 MG/0.4 ML SYRINGE SQ SCH (05:10)
[2017-04-26 05:49] LABS: Hematocrit 45.2 % (37.5-50.1); Hemoglobin 15.1 g/dL (12.9-16.9); Mean Corpuscular HGB Conc 33.4 g/dL (31.6-35.5); Mean Corpuscular Volume 89.7 fL (83.0-100.0); Platelet Count 209 K/mcL (140-400); Red Blood Count 5.04 M/mcL (4.19-5.50); Red Cell Distribution Width 13.3 % (11.5-14.5)
[2017-04-26] MEDS: carBAMazepine 200 MG TABLET PO SCH (08:17)
--- NOTE | 2017-04-26 08:17 | Internal Med Progress Note ---
Date of Encounter: 04/26/17 Time of Encounter: 08:17 - Assessment and plan (1) DM2 (diabetes mellitus, type 2) Current Visit: Yes Status: Acute Assessment and plan: 04/25/2017 per history but not currently on treatment. Hgb A1c 8.4%. Blood sugars remain elevated despite low-dose SSI. Blood sugars remain elevated despite increase in long-acting insulin. Continue to monitor blood sugar and titrate PRN. 04/26/2017- patient's blood sugars have been in the 230 -270 range overnight. His blood sugar control is not adequate given his latest A1C. he used to take 44 years of Lantus at 2 PM every day in addition to Humalog he has been started on 20 units of Levemir at night over here in addition to sliding scale of insulin I will up the dozing of Levemir to 30 units while keeping the sliding scale the same and monitor Qualifiers: Diabetes mellitus complication status: without complication Diabetes mellitus extermination inspector insulin use: with extermination inspector use Qualified Code(s): E11.9 - Type 2 diabetes mellitus without complications; Z79.4 - termite technician (current) use of insulin; Z79.4 - correction (current) use of insulin; Z79.4 - correction ( current) use of insulin; Z79.4 - termite technician (current) use of insulin (2) DVT prophylaxis Current Visit: Yes Status: Acute Assessment and plan: lovenox (3) HTN (hypertension) Current Visit: Yes Status: Acute Assessment and plan: Blood pressure improved after starting amlodipine. Continue to monitor closely Qualifiers: Hypertension type: essential hypertension Qualified Code(s): I10 - Essential (primary) hypertension (4) Neuroleptic-induced tardive dyskinesia Current Visit: Yes Status: Acute (5) Schizophrenia Current Visit: Yes Status: Acute Assessment and plan: 04/25/2017 per hx; lives in shared living housing in [place]. He was found at local gas station decompensated with active hallucinations. He apparently took a Greyhound from [place] to [place] where he allegedly has family members. Evaluated by Psychiatry who noted paranoid schizophrenia with multiple auditory hallucinations. He is a dominguez of the [facility], currently does not have a guardian. A frame hand was appointed to patient on 04/24/[address] for emergency guardian placement. Psychiatry recommending inpatient psychiatric unit either here at [facility] or return to [place]. Of note , patient is effusing to return to [place]. States he will kill himself if he is made to go back to [place]. Awaiting to hear from [place] Court system. Continue home medications. Home Seroquel adjusted by psychiatry due to increased anxiety. He is agreeable to stay on a voluntary basis however if he would try to leave [place] on the he would need to be pink slipped 04/26/2017- patient continues to exhibit active hallucinations although they are slightly improved. He is being seen by psychiatry as a consultation and they are adjusting his medications. He seems to have been on a much higher dose of Seroquel as an outpatient that has worked for him. Psychiatry is titrating the dozing while inpatient. Await further recommendations. As far as disposition is concerned, social work is actively involved in working to establish a legal guardian for reasons mentioned above. He is not yet medically cleared to go into inpatient psychiatric facility Qualifiers: Schizophrenia type: paranoid schizophrenia Qualified Code(s): F20.0 - Paranoid schizophrenia - Time Spent With Patient 25 - 35 minutes (More than half of this time was spent on [id number] counseling) - Subjective Interval history: Patient states that has auditory hallucinations have improved but are still very significant as compared with baseline. On further history patient also states that he was on Seroquel 300 mg in the morning and 600 mg in the evening. At that dose he did not have auditory hallucinations or whatever he did have, were manageable and he was able to live with the symptoms. Over the last year he has had a change of psychiatric providers who have been adjusting his Seroquel dosing and adding new medications which he claims has made his auditory hallucinations worse. He still denies any suicidal ideation at this point. - Constitutional Vitals: Temp Pulse Resp BP Pulse Ox 97.8 F 80 16 111/77 96 04/26/17 07:11 04/26/17 07:11 04/26/17 07:11 04/26/17 07:11 04/26/17 07:11 General appearance: Present: A&O X 3, morbidly obese, no acute distress, answers questions appropriately Exam: General , Alert , oriented x 2 HEENT- PERRLA. EOMI CVS- S1S2 N, No Murmurs, Rubs, gallops, No JVD RS- CTA Bilaterally. No rales no Rhonchi heard Abdomen- Soft NT ND, bowel sounds heard across all 4 quadrants Neuro- No Focal deficits appreciated, CN 2-12 intact, Motors- power 5/5 UE, 5/5 LE Bilaterally, Sensations intact Extremeties- no Clubbing/ edema/ wounds seen - ENT ENT exam: Present: mucous membranes moist, normal external ear exam - GI/Abdominal GI/Abdominal exam: Present: normal bowel sounds, soft, no peritoneal signs. Absent: distended, tenderness - Extremities Exam Extremities exam: Absent: pedal edema Internal Medicine: Result - Labs CBC & Chem 7: 04/26/17 04:56 04/25/17 04:25 Labs: Short CBC 04/26/17 Range/Units 04:56 WBC 8.0 (4.3-11.1) K/mcL Hgb 15.1 (12.9-16.9) g/dL Hct 45.2 (37.5-50.1) % Plt Count 209 (140-400) K/mcL Accu checks-ranging from 232 -270s Consult Discharge Plan - Plan Referrals: NONE,PCP [Primary Care Provider] -
[2017-04-26] MEDS: Insulin LISPRO 300 UNITS/3 ML VIAL SQ SCH ×3 (08:18→16:52)
[2017-04-26] MEDS ORDERED: amLODIPine 5 MG TABLET PO SCH (09:00)
--- NOTE | 2017-04-26 11:17 | Discharge Summary ---
Date of Encounter: 04/26/17 Time of Encounter: 11:08 - Discharge Diagnosis (1) Schizophrenia Priority: Primary Status: Acute Qualifiers: Schizophrenia type: paranoid schizophrenia Qualified Code(s): F20.0 - Paranoid schizophrenia (2) Neuroleptic-induced tardive dyskinesia Priority: Secondary Status: Acute (3) DM2 (diabetes mellitus, type 2) Priority: Secondary Status: Acute Qualifiers: Diabetes mellitus complication status: without complication Diabetes mellitus nursing home insulin use: with manager fashion use Qualified Code(s): E11.9 - Type 2 diabetes mellitus without complications; Z79.4 - [facility] (current) use of insulin; Z79.4 - cloth cutter (current) use of insulin; Z79.4 - cloth cutter ( current) use of insulin; Z79.4 - [facility] (current) use of insulin (4) DVT prophylaxis Priority: Secondary Status: Acute (5) HTN (hypertension) Priority: Secondary Status: Acute Qualifiers: Hypertension type: essential hypertension Qualified Code(s): I10 - Essential (primary) hypertension - Discharge Medications Prescriptions: HYDROcodone/Acet 5/325 mg [[place] 5-325 mg] 1 tab PO Q4HR PRN #4 tablet PRN Reason: Moderate Pain (4-6) Home Medications: Docusate Sodium [Dok] 100 mg PO 1-2XD 04/20/17 [History] Paliperidone [Invega] 6 mg PO QAM 04/20/17 [History] Quetiapine Fumarate [Seroquel] 600 mg PO HS 04/20/17 [History] Trazodone HCl 150 mg PO HS 04/20/17 [History] carBAMazepine [Tegretol] 400 mg PO BID 04/20/17 [History] Docusate [Colace] 100 mg PO BID PRN capsule 04/26/17 [Rx] HYDROcodone/Acet 5/325 mg [[place] 5-325 mg] 1 tab PO Q4HR PRN #4 tablet 04/26/17 [Rx] Insulin DETEMIR [Levemir] 30 unit SQ HS [id number] 04/26/17 [Rx] Insulin LISPRO [HumaLOG] 0 units SQ HS vial 04/26/17 [Rx] Insulin LISPRO [HumaLOG] 0 units SQ TIDAC vial 04/26/17 [Rx] Quetiapine Fumarate [Seroquel] 50 mg PO 0900,1500 tablet 04/26/17 [Rx] amLODIPine [Norvasc] 5 mg PO DAILY tablet 04/26/17 [Rx] Allergies/Adverse Reactions: 3 Allergy/AdvReac Type Severity Reaction Status Date / Time No Known Allergies Allergy Verified 04/18/17 23:49 Date of admission: 04/19/17 22:08 Primary care physician: PCP NONE Discharging clinician: Jovanni Barnett - Patient Status Disposition: Transfer Psychiatric Hosp Condition: Fair Functional capacity at discharge: independent ambulation Overall status at discharge: patient is progressing back to baseline - Discharge Instructions Follow Up With: NONE,PCP [Primary Care Provider] - Forms: ED Satisfaction Letter - Diet and Activity Activity: increase activity as tolerated Diet: diabetic diet Interval History: m Hospital course: Mr. Plummer is a 51 year old male who was admitted with active hallucinations and worsening schizophrenic symptoms. He is a dominguez of [facility] and did not have a guardian. He also has a history of type II diabetes mellitus on insulin and presented with uncontrolled diabetes with a A1 C of 8.4. He was admitted under observation status to the hospital and monitored and treated for his psychiatric symptoms. He has now been cleared from medical standpoint for admission to inpatient psychiatry. Of note court appointed guardian has been arranged for him. As per psychiatry consultation, he is deemed appropriate for inpatient psychiatric stay. As far as his diabetes is concerned, we have adjusted his Levemir to a total of 30 units at night. His home dose of Lantus is 44 units at 2 PM. Need does adjustment on his Levemir once he is in the psychiatric unit. - Time Spent with Patient Total time spent providing and/or coordinating discharge services: Greater than 30 minutes - Constitutional Vitals: Temp Pulse Resp BP Pulse Ox 98.7 F 79 16 98/63 93 04/26/17 10:43 04/26/17 10:43 04/26/17 10:43 04/26/17 10:43 04/26/17 10:43 General appearance: Present: A&O X 3, morbidly obese, no acute distress, answers questions appropriately Exam: See todays progress note.
[2017-04-26 18:40] VITALS: BP 113/77
[2017-04-26] MEDS ORDERED: Insulin DETEMIR 100 UNIT/ML X5UNITS SQ SCH (21:00)
== END 2017-04-26 18:56 ==
LOC: EMEROO 23:46 → 3BNU 23:46 → SUATTDRO 04-19 22:08 → 3BNU 04-19 23:10
PROVIDERS: ADMIT Family Medicine; ATTEND Internal Medicine

== ENCOUNTER 2017-04-26 18:41 | Inpatient (IN) ==
[2017-04-26] MEDS ORDERED: Haloperidol Lactate 5 MG/ML VIAL IM PRN (19:30)
[2017-04-26] MEDS ORDERED: MOM Conc 10 ML UD.LIQ PO PRN (19:30)
[2017-04-26] MEDS ORDERED: *HR* LORazepam 1 MG TABLET PO PRN (19:30)
[2017-04-26] MEDS ORDERED: Mag Hydrox/Al Hydrox/Simeth 30 ML UDC PO PRN (19:30)
[2017-04-26] MEDS ORDERED: *HR* LORazepam 2 MG/ML VIAL IM PRN (19:30)
[2017-04-26] MEDS ORDERED: Dextrose Gel 15 GM/37.5 ML TUBE PO PRN ×2 (19:34)
[2017-04-26] MEDS: traZODone 50 MG TABLET PO SCH (21:16)
[2017-04-26] MEDS: Insulin LISPRO 300 UNITS/3 ML VIAL SQ SCH (21:16)
[2017-04-26] MEDS: carBAMazepine 200 MG TABLET PO SCH (21:16)
[2017-04-26] MEDS: Insulin DETEMIR 100 UNIT/ML X5UNITS SQ SCH (21:18)
[2017-04-27] MEDS: Insulin LISPRO 300 UNITS/3 ML VIAL SQ SCH ×4 (07:54→20:34)
[2017-04-27] MEDS: carBAMazepine 200 MG TABLET PO SCH ×2 (08:36→20:35)
[2017-04-27] MEDS: amLODIPine 5 MG TABLET PO SCH (08:36)
--- NOTE | 2017-04-27 12:47 | Psychiatry History & Physical ---
Date of Encounter: 04/27/17 Time of Encounter: 10:20 History of Present Illness Patient Stated Chief Complaint: "I still hear the voices" Medicare Admission Attestation: For traditional Medicare patients the provided hospital inpatient services are reasonable and necessary and in the case of services not specified as inpatient -only under 42 CFR 419.22 (n), that they are appropriately provided as inpatient services in accordance 42 CFR 412.3. For Critical Access Hospital the patient may reasonably be expected to be discharged or transferred to a hospital within 96 hours after admission to the Critical Access Hospital. Admitted From: Intrahospital Transfer Plans for Post Hospital Care: Home History of Present Illness: Mr. Plummer is a 51 year old male with schizophrenia likely some kind of borderline intellect functioning versus mild MR who presented to the hospital with psychosis and problems with his blood sugar. He was admitted to the medical floor and stabilized before being evaluated and transferred down to the psychiatric unit. Complicating this patient is from [place] and actually has a guardian appointed by the [facility]. He had apparently left [place] suddenly to be with family and [place]. His family here does not want to be responsible for him. His guardian in [place] either or was replaced and he was momentarily without guardian until one to be appointed for him. Once the patient had a guardian request transfer to [facility] for psychiatric stabilization and this was granted. Patient continues to report auditory hallucinations are "bothering me." He withdraws to his room and is minimally interactive with peers and staff. He continues to make conditional suicidal statements because he does not want to return to [place]. Past Med Surg Social Fam HX - Past Medical History Medical history: diabetes, hyperlipidemia, hypertension - Past Psychiatric History Psychiatric history: Reports: schizophrenia, previous psychiatric hospitalization Past psychiatric history details: Patient has a guardian in [place]. We will attempt to gain records from previous shelter. Family psychiatric history: Unknown Family History of Suicide: Unknown - Past Surgical History Surgical History: no surgical history - Social History Smoking Status: Never smoker Alcohol use: none Drug use: none Medications & Allergies Paliperidone [Invega] 6 mg PO QAM 04/20/17 [History] Quetiapine Fumarate [Seroquel] 600 mg PO HS 04/20/17 [History] Trazodone HCl 150 mg PO HS 04/20/17 [History] carBAMazepine [Tegretol] 400 mg PO BID 04/20/17 [History] Docusate [Colace] 100 mg PO BID PRN capsule 04/26/17 [Rx] HYDROcodone/Acet 5/325 mg [[place] 5-325 mg] 1 tab PO Q4HR PRN #4 tablet 04/26/17 [Rx] Insulin DETEMIR [Levemir] 30 unit SQ HS [id number] 04/26/17 [Rx] Insulin LISPRO [HumaLOG] 0 units SQ HS vial 04/26/17 [Rx] Insulin LISPRO [HumaLOG] 0 units SQ TIDAC vial 04/26/17 [Rx] Quetiapine Fumarate [Seroquel] 50 mg PO 0900,1500 tablet 04/26/17 [Rx] amLODIPine [Norvasc] 5 mg PO DAILY tablet 04/26/17 [Rx] 3 Allergy/AdvReac Type Severity Reaction Status Date / Time No Known Allergies Allergy Verified 04/18/17 23:49 Review of Systems ROS limited: due to patient condition Psychiatric: Reports: depression, suicidal ideation, auditory hallucinations, hopelessness, mood swings Mental Status Exam Patient orientation: Yes Person, No Time, Yes Place Level of alertness: Alert Patient appearance: Unkempt, Obese Behavior: calm, cooperative Psychomotor activity: Normal Eye contact: Minimal Contact Mood description: Depressed Affect description: flat, dysphoric Speech pattern: Slowed Speech volume: Normal Thought process: [place] Thought content: Yes Suicidal ideation (conditional), No Homicidal ideation Perceptual disturbances: No Reacting to internal stimuli, Yes Auditory hallucinations Attention span: Capable of Focused Attention Memory description: Grossly Intact Patient reliability: Questionable Historian Intelligence estimate: Below Average Judgment: Limited Insight: Minimal Exam - HEENT Head exam IM: Present: atraumatic Eye exam IM: Present: EOMI - Neurological Neurological exam IM: Present: CN II-XII intact Results - Vital Signs Vital signs: Temp Pulse Resp BP 97.8 F 83 16 111/83 04/27/17 08:17 04/27/17 08:17 04/27/17 08:17 04/27/17 08:17 - Labs Labs: Laboratory Last Values POC Glucose 251 (58-89) H 04/27/17 11:25 Assessment and Plan (1) Schizophrenia Current visit: No Status: Acute Plan: Admit inpatient for safety and stabilization, Close observation, Suicide Precautions per unit protocol, Encourage participation in unit milieu, Group Therapy, Monitor sleep, Monitor appetite Additional Plan: We will discuss regarding about potential increase in Seroquel dosage. Encourage group attendance. Monitor for side effects. Risks, benefits, side effects, alternatives discussed w/pt: Yes Patient agreeable to treatment: Yes Qualifiers: Schizophrenia type: paranoid schizophrenia Qualified Code(s): F20.0 - Paranoid schizophrenia
[2017-04-27] MEDS: Insulin DETEMIR 100 UNIT/ML X5UNITS SQ SCH (20:34)
[2017-04-27] MEDS: traZODone 50 MG TABLET PO SCH (20:35)
[2017-04-28] MEDS: carBAMazepine 200 MG TABLET PO SCH ×2 (08:12→20:30)
[2017-04-28] MEDS: amLODIPine 5 MG TABLET PO SCH (08:12)
[2017-04-28] MEDS: Insulin LISPRO 300 UNITS/3 ML VIAL SQ SCH ×4 (08:16→20:30)
--- NOTE | 2017-04-28 13:16 | Psychiatry Progress Note ---
Date of Encounter: 04/28/17 Time of Encounter: 12:30 Subjective Interval history: Jonh is seen today for follow-up. He continues to report difficulty with sleep. He reports he is hearing voices and they wake him up out of sleep. During the day he states he feels "okay." Still very focused on having to potentially return to [place] because of his guardianship. Encouraged patient to shower and interact with peers and staff. Review of Systems Psychiatric: Reports: depression, suicidal ideation, auditory hallucinations, hopelessness, mood swings Objective: Exam Patient orientation: Yes Person, Yes Time, Yes Place Level of alertness: Alert Patient appearance: Unkempt Behavior: guarded Psychomotor activity: Normal Eye contact: Minimal Contact Mood description: Anxious Affect description: flat Speech pattern: Normal rate, Normal rhythm, Normal tone Speech volume: Normal Thought process: Linear Thought content: Yes Suicidal ideation, No Homicidal ideation Perceptual disturbances: No Reacting to internal stimuli, Yes Auditory hallucinations Judgment: Limited Insight: Minimal Results - Vital Signs Vital Signs: Temp Pulse Resp BP 97.4 F L 90 16 119/84 04/28/17 08:52 04/28/17 08:52 04/28/17 08:52 04/28/17 08:52 - Labs Labs: Laboratory Results - last 24 hr 04/27/17 04/27/17 04/28/17 16:32 20:01 06:50 POC Glucose 224 H 259 H 248 H 04/28/17 11:25 POC Glucose 269 H Assessment and Plan (1) Schizophrenia Current visit: No Status: Acute Plan: Continue hospitalization, Close observation, Suicide Precautions per unit protocol, Encourage participation in unit milieu, Group Therapy, Monitor sleep, Monitor appetite Additional Plan: Still waiting for approval to change or adjust medications from guardian. Continue to monitor and encourage group attendance. Risks, benefits, side effects, alternatives discussed w/pt: Yes Patient agreeable to treatment: Yes Qualifiers: Schizophrenia type: paranoid schizophrenia Qualified Code(s): F20.0 - Paranoid schizophrenia Consult Discharge Plan - Plan Referrals: NONE,PCP [Primary Care Provider] -
[2017-04-28] MEDS: traZODone 50 MG TABLET PO SCH (20:30)
[2017-04-28] MEDS: traZODone 50 MG TABLET PO PRN (20:30)
[2017-04-28] MEDS: Insulin DETEMIR 100 UNIT/ML X5UNITS SQ SCH (20:31)
--- NOTE | 2017-04-29 10:51 | Psychiatry Progress Note ---
Date of Encounter: 04/29/17 Time of Encounter: 10:35 Subjective Interval history: Keith is seen today for follow-up. He reports that he slept better last night. He is still hearing some voices but states that it is slightly better today. He is worried about going back to [place] because the doctor there does not was sent to him and always gives him to much medication. Patient describes the voices as "out on others just talking to each other." Review of Systems Psychiatric: Reports: depression, abnormal sleep pattern, auditory hallucinations, mood swings Objective: Exam Patient orientation: Yes Person, Yes Time, Yes Place Level of alertness: Alert Patient appearance: Unkempt, Obese Behavior: calm, cooperative Psychomotor activity: Normal Eye contact: Maintains Eye Contact Mood description: Anxious Affect description: full range Speech pattern: Normal rate, Normal rhythm, Normal tone Speech volume: Normal Thought process: Linear, Goal Oriented Thought content: No Suicidal ideation, No Homicidal ideation Perceptual disturbances: No Reacting to internal stimuli, Yes Auditory hallucinations Judgment: Limited Insight: Minimal Results - Vital Signs Vital Signs: Temp Pulse Resp BP 98 F 84 16 123/87 04/29/17 09:00 04/29/17 09:00 04/29/17 09:00 04/29/17 09:00 - Labs Labs: Laboratory Results - last 24 hr 04/28/17 04/28/17 04/28/17 11:25 16:19 19:47 POC Glucose 269 H 225 H 255 H 04/29/17 08:18 POC Glucose 241 H Assessment and Plan (1) Schizophrenia Current visit: No Status: Acute Plan: Continue hospitalization, Close observation, Suicide Precautions per unit protocol, Encourage participation in unit milieu, Group Therapy, Monitor sleep, Monitor appetite Additional Plan: Patient appears to be having some improvement in symptoms.. We will continue to monitor and coordinate further medical adjustments through patient's guardian. Encourage positive coping strategies. Risks, benefits, side effects, alternatives discussed w/pt: Yes Patient agreeable to treatment: Yes Qualifiers: Schizophrenia type: paranoid schizophrenia Qualified Code(s): F20.0 - Paranoid schizophrenia Consult Discharge Plan - Plan Referrals: NONE,PCP [Primary Care Provider] -
[2017-04-29] MEDS: Insulin LISPRO 300 UNITS/3 ML VIAL SQ SCH ×4 (11:24→21:09)
[2017-04-29] MEDS: carBAMazepine 200 MG TABLET PO SCH ×2 (11:28→20:24)
[2017-04-29] MEDS: amLODIPine 5 MG TABLET PO SCH (11:29)
[2017-04-29] MEDS: traZODone 50 MG TABLET PO SCH (20:24)
[2017-04-29] MEDS: Insulin DETEMIR 100 UNIT/ML X5UNITS SQ SCH (20:25)
[2017-04-30] MEDS: Insulin LISPRO 300 UNITS/3 ML VIAL SQ SCH ×4 (08:31→21:20)
[2017-04-30] MEDS: amLODIPine 5 MG TABLET PO SCH (08:32)
[2017-04-30] MEDS: carBAMazepine 200 MG TABLET PO SCH ×2 (08:33→21:24)
--- NOTE | 2017-04-30 13:12 | Psychiatry Progress Note ---
Date of Encounter: 04/30/17 Time of Encounter: 13:07 Subjective Interval history: Client reports he is still hearing voices. Sleeping better but when he is awake AH are fairly constant. Describes current AH as "ringing, buzzing" which he likens to the "[place]" talking to him. Does not appear to be responding to IS but has an odd affect. Late onset mental illness. Struggled with depression when young but no psychosis until his late thirties. Came to [place] two weeks ago on the [employer] bus. Trying to reconnect with ex- and three daughters who live in [place]. Only family staff have been able to contact don't want to have anything to do with him. Has a guardian back in [place] so will likely need to return there. Client is adamant he won' t go back and is threatening to kill himself if forced to return. Denying active SI today but states he will become suicidal if he needs to return to [place]. Did well in halfway on Seroquel. Currently being prescribed Seroquel but client still reporting psychotic symptoms. Will adjust dose if needed but want to monitor on current dose for now. Some symptoms may be feigned. Review of Systems Constitutional: Denies: fever, chills, weakness, weight change Eyes: Denies: eye pain, vision change Ears, Nose, Throat: Denies: ear pain, throat pain, dental pain, hearing loss, congestion Cardiovascular: Denies: chest pain, palpitations, dyspnea on exertion Respiratory: Denies: cough, dyspnea, wheezes Gastrointestinal: Denies: abdominal pain, nausea, vomiting, diarrhea, constipation Musculoskeletal: Denies: joint swelling, joint pain Neurological: Denies: headache, weakness, numbness, memory loss Psychiatric: Reports: depression, abnormal sleep pattern, auditory hallucinations, mood swings Objective: Exam Patient orientation: Yes Person, Yes Time, Yes Place Level of alertness: Alert Patient appearance: Disheveled Behavior: calm, cooperative Psychomotor activity: Normal Eye contact: Maintains Eye Contact Mood description: Depressed Affect description: congruent with mood Speech pattern: Normal rate, Normal rhythm, Normal tone Speech volume: Normal Thought process: Linear Thought content: No Suicidal ideation, No Homicidal ideation, No Overt delusions Perceptual disturbances: Yes Auditory hallucinations Judgment: Limited Insight: Partial Results - Vital Signs Vital Signs: Temp Pulse Resp BP 97.6 F 68 16 110/80 04/30/17 07:58 04/30/17 07:58 04/30/17 07:58 04/30/17 07:58 - Labs Labs: Laboratory Results - last 24 hr 04/29/17 04/29/17 04/30/17 16:17 19:46 07:36 POC Glucose 278 H 227 H 266 H 04/30/17 11:37 POC Glucose 271 H Assessment and Plan (1) Schizophrenia Current visit: No Status: Acute Plan: Continue hospitalization, Close observation, Suicide Precautions per unit protocol, Encourage participation in unit milieu, Group Therapy, Monitor sleep, Monitor appetite Risks, benefits, side effects, alternatives discussed w/pt: Yes Patient agreeable to treatment: Yes Qualifiers: Schizophrenia type: paranoid schizophrenia Qualified Code(s): F20.0 - Paranoid schizophrenia Consult Discharge Plan - Plan Referrals: NONE,PCP [Primary Care Provider] -
[2017-04-30] MEDS: Insulin DETEMIR 100 UNIT/ML X5UNITS SQ SCH (21:21)
[2017-04-30] MEDS: traZODone 50 MG TABLET PO SCH (21:23)
[2017-04-30] MEDS: traZODone 50 MG TABLET PO PRN (21:23)
[2017-05-01] MEDS: Insulin LISPRO 300 UNITS/3 ML VIAL SQ SCH ×4 (07:54→20:50)
[2017-05-01] MEDS: carBAMazepine 200 MG TABLET PO SCH ×2 (07:55→20:38)
[2017-05-01] MEDS: amLODIPine 5 MG TABLET PO SCH (07:55)
--- NOTE | 2017-05-01 13:44 | Psychiatry Progress Note ---
Date of Encounter: 05/01/17 Time of Encounter: 13:39 Subjective Interval history: Had a bad night. Work up screaming and had to be medicated around 2:30am. Client states today the voices woke him up and wanted to argue. Some concern that he may be feigning symptoms to avoid being sent home to [place]. However , he seems genuinely distressed by today. Lamenting fact that his family is scared of him because of his psychosis. Seems to want help with the voices. Claims no real relief in 19 years. Client's goal is to have every other day free from AH. Discussed how this might not be possible but that med adjustments will be made to try and get better symptom relief. Client reports Haldol helps him sleep. He states at this point he wants to sleep all the time because sleep is his only escape from the voices. Currently takes Invega which he says does nothing for him. Will change Invega to Haldol so he has one typical agent and one atypical on board. Client also reports he is supposed to be taking Synthroid. Will check TSH. If thyroid not functioning right this could definitely be impacting his symptoms. Review of Systems Constitutional: Denies: fever, chills, weakness, weight change Eyes: Denies: eye pain, vision change Ears, Nose, Throat: Denies: ear pain, throat pain, dental pain, hearing loss, congestion Cardiovascular: Denies: chest pain, palpitations, dyspnea on exertion Respiratory: Denies: cough, dyspnea, wheezes Gastrointestinal: Denies: abdominal pain, nausea, vomiting, diarrhea, constipation Musculoskeletal: Denies: joint swelling, joint pain Neurological: Denies: headache, weakness, numbness, memory loss Psychiatric: Reports: depression, abnormal sleep pattern, auditory hallucinations, mood swings Objective: Exam Patient orientation: Yes Person, Yes Time, Yes Place Level of alertness: Alert Patient appearance: Unkempt, Disheveled Behavior: calm, cooperative Psychomotor activity: Normal Eye contact: Maintains Eye Contact Mood description: Depressed Affect description: congruent with mood Speech pattern: Normal rate, Normal rhythm, Normal tone Speech volume: Normal Thought process: Goal Oriented Thought content: No Suicidal ideation, No Homicidal ideation, No Overt delusions Perceptual disturbances: Yes Reacting to internal stimuli, Yes Auditory hallucinations Judgment: Fair Insight: Partial Results - Vital Signs Vital Signs: Temp Pulse Resp BP 98.2 F 85 16 124/82 05/01/17 08:01 05/01/17 08:01 05/01/17 08:01 05/01/17 08:01 - Labs Labs: Laboratory Results - last 24 hr 04/30/17 04/30/17 04/30/17 16:04 21:19 22:33 POC Glucose 234 H 372 H 314 H 05/01/17 05/01/17 07:46 11:44 POC Glucose 229 H 233 H Assessment and Plan (1) Schizophrenia Current visit: No Status: Acute Plan: Continue hospitalization, Close observation, Suicide Precautions per unit protocol, Encourage participation in unit milieu, Group Therapy, Monitor sleep, Monitor appetite Risks, benefits, side effects, alternatives discussed w/pt: Yes Patient agreeable to treatment: Yes Qualifiers: Schizophrenia type: paranoid schizophrenia Qualified Code(s): F20.0 - Paranoid schizophrenia Consult Discharge Plan - Plan Referrals: NONE,PCP [Primary Care Provider] -
[2017-05-01] MEDS: Insulin DETEMIR 100 UNIT/ML X5UNITS SQ SCH (20:38)
[2017-05-01] MEDS: traZODone 50 MG TABLET PO SCH (20:38)
[2017-05-02] MEDS: Levothyroxine 25 MCG TABLET PO SCH (06:08)
[2017-05-02] MEDS: Insulin LISPRO 300 UNITS/3 ML VIAL SQ SCH ×4 (08:02→20:40)
[2017-05-02] MEDS: carBAMazepine 200 MG TABLET PO SCH ×2 (08:05→20:41)
[2017-05-02] MEDS: amLODIPine 5 MG TABLET PO SCH (08:05)
--- NOTE | 2017-05-02 12:01 | Psychiatry Progress Note ---
Date of Encounter: 05/02/17 Time of Encounter: 11:58 Subjective Interval history: Client states he found the Haldol helpful. Able to sleep through the night. No changes with the AH while awake. States voices are constant while awake. "They're talking to me right now. They talk across me to each other." Does not appear to be responding to internal stimuli. May have good coping mechanisms or AH may be more a symptom of PTSD and not a genuine thought disorder. Client is very organized for someone with Schizophrenia. Unclear why he has a guardian. Some of his history is still missing. Client remains adamant that he will not return to [place]. Staff are working with his guardian on the best discharge plan. TSH came back elevated. Low dose Synthroid started. Review of Systems Constitutional: Denies: fever, chills, weakness, weight change Eyes: Denies: eye pain, vision change Ears, Nose, Throat: Denies: ear pain, throat pain, dental pain, hearing loss, congestion Cardiovascular: Denies: chest pain, palpitations, dyspnea on exertion Respiratory: Denies: cough, dyspnea, wheezes Gastrointestinal: Denies: abdominal pain, nausea, vomiting, diarrhea, constipation Musculoskeletal: Denies: joint swelling, joint pain Neurological: Denies: headache, weakness, numbness, memory loss Psychiatric: Reports: depression, abnormal sleep pattern, auditory hallucinations, mood swings Objective: Exam Patient orientation: Yes Person, Yes Time, Yes Place Level of alertness: Alert Patient appearance: Disheveled Behavior: calm, cooperative Psychomotor activity: Normal Eye contact: Maintains Eye Contact Mood description: Depressed Affect description: congruent with mood Speech pattern: Normal rate, Normal rhythm, Normal tone Speech volume: Normal Thought process: Goal Oriented Thought content: No Suicidal ideation, No Homicidal ideation, No Overt delusions Perceptual disturbances: Yes Auditory hallucinations Judgment: Limited Insight: Partial Results - Vital Signs Vital Signs: Temp Pulse Resp BP 97.5 F L 78 20 125/97 05/02/17 09:00 05/02/17 09:00 05/02/17 09:00 05/02/17 09:00 - Labs Labs: Laboratory Results - last 24 hr 05/01/17 05/01/17 05/01/17 13:56 16:05 20:07 POC Glucose 308 H 279 H TSH 12.822 H 05/02/17 05/02/17 07:46 11:22 POC Glucose 226 H 300 H TSH Assessment and Plan (1) Schizophrenia Current visit: No Status: Acute Plan: Continue hospitalization, Close observation, Suicide Precautions per unit protocol, Encourage participation in unit milieu, Group Therapy, Monitor sleep, Monitor appetite Risks, benefits, side effects, alternatives discussed w/pt: Yes Patient agreeable to treatment: Yes Qualifiers: Schizophrenia type: paranoid schizophrenia Qualified Code(s): F20.0 - Paranoid schizophrenia Consult Discharge Plan - Plan Referrals: NONE,PCP [Primary Care Provider] -
[2017-05-02] MEDS: traZODone 50 MG TABLET PO SCH (20:41)
[2017-05-02] MEDS: traZODone 50 MG TABLET PO PRN (20:41)
[2017-05-02] MEDS: Insulin DETEMIR 100 UNIT/ML X5UNITS SQ SCH (21:18)
[2017-05-03] MEDS: Levothyroxine 25 MCG TABLET PO SCH (06:59)
[2017-05-03] MEDS: Acetaminophen 325 MG TABLET PO PRN ×2 (07:02→20:19)
[2017-05-03] MEDS: Insulin LISPRO 300 UNITS/3 ML VIAL SQ SCH ×4 (08:00→20:21)
[2017-05-03] MEDS: carBAMazepine 200 MG TABLET PO SCH ×2 (08:13→20:20)
[2017-05-03] MEDS: amLODIPine 5 MG TABLET PO SCH (08:14)
--- NOTE | 2017-05-03 13:45 | Psychiatry Progress Note ---
Date of Encounter: 05/03/17 Time of Encounter: 13:41 Subjective Interval history: States his voices are "really bad today." Still has an odd affect but never appears to be responding to IS. Taking high doses of antipsychotics (Seorquel and Haldol) with no subjective relief. Given prn Haldol on top of scheduled doses at 3:30am due to complaints of AH. Not attending any groups. Stays in bed all day. Seems to use sleep as an escape. Continues to say he wants to remain in [place] but family here want nothing to do with him. Staff spoke with his sister early in his admission and client's guardian is now saying that number is disconnected. Guardian is new as family member who was serving as guardian . She is trying to help with discharge planning from her end but doesn't know his case very well. She is supposed to contact staff today after she determines if client can return to his old residence. Review of Systems Constitutional: Denies: fever, chills, weakness, weight change Eyes: Denies: eye pain, vision change Ears, Nose, Throat: Denies: ear pain, throat pain, dental pain, hearing loss, congestion Cardiovascular: Denies: chest pain, palpitations, dyspnea on exertion Respiratory: Denies: cough, dyspnea, wheezes Gastrointestinal: Denies: abdominal pain, nausea, vomiting, diarrhea, constipation Musculoskeletal: Denies: joint swelling, joint pain Neurological: Denies: headache, weakness, numbness, memory loss Psychiatric: Reports: depression, abnormal sleep pattern, auditory hallucinations, mood swings Objective: Exam Patient orientation: Yes Person, Yes Time, Yes Place Level of alertness: Alert Patient appearance: Unkempt, Disheveled Behavior: calm, cooperative Psychomotor activity: Normal Mood description: Depressed Affect description: congruent with mood Speech pattern: Normal rate, Normal rhythm, Normal tone Speech volume: Normal Thought process: Linear Thought content: No Suicidal ideation, No Homicidal ideation, No Overt delusions Perceptual disturbances: Yes Auditory hallucinations Judgment: Limited Insight: Partial Results - Vital Signs Vital Signs: Temp Pulse Resp BP 97.8 F 88 18 128/86 05/03/17 08:05 05/03/17 08:05 05/03/17 08:05 05/03/17 08:05 - Labs Labs: Laboratory Results - last 24 hr 1205/02/17 05/03/17 16:11 20:39 07:50 POC Glucose 217 H 329 H 278 H 05/03/17 11:41 POC Glucose 251 H Assessment and Plan (1) Schizophrenia Current visit: No Status: Acute Plan: Continue hospitalization, Close observation, Suicide Precautions per unit protocol, Encourage participation in unit milieu, Group Therapy, Monitor sleep, Monitor appetite Risks, benefits, side effects, alternatives discussed w/pt: Yes Patient agreeable to treatment: Yes Qualifiers: Schizophrenia type: paranoid schizophrenia Qualified Code(s): F20.0 - Paranoid schizophrenia Consult Discharge Plan - Plan Referrals: NONE,PCP [Primary Care Provider] -
[2017-05-03] MEDS: traZODone 50 MG TABLET PO PRN (20:20)
[2017-05-03] MEDS: Insulin DETEMIR 100 UNIT/ML X5UNITS SQ SCH (20:20)
[2017-05-03] MEDS: traZODone 50 MG TABLET PO SCH (20:20)
[2017-05-04] MEDS: Levothyroxine 25 MCG TABLET PO SCH (06:36)
[2017-05-04] MEDS: Insulin LISPRO 300 UNITS/3 ML VIAL SQ SCH ×4 (08:04→21:04)
[2017-05-04] MEDS: carBAMazepine 200 MG TABLET PO SCH ×2 (08:26→21:05)
[2017-05-04] MEDS: amLODIPine 5 MG TABLET PO SCH (08:27)
--- NOTE | 2017-05-04 11:44 | Psychiatry Progress Note ---
Date of Encounter: 05/04/17 Time of Encounter: 11:36 Subjective Interval history: Stayed in bed all day yesterday. Not attending groups. Discussed need to be up and active. Client reports he either sleeps or sits and talks to his voices all day. "I haven't watched TV in two years." Claims he becomes so consumed by the voices he doesn't do anything besides interact with them. "Sometimes I forget to feed myself." Discussed need to occupy brain in other ways so he can distract himself from constant AH. Discussed how he is taking a robust regimen of medications and if he is not getting any relief he may need to work on developing a strategy to cope with the voices. Client states he cannot tolerate baseline voices. "I'll just kill myself." Continues to say he will kill himself if he has to return to [place]. Staff have been speaking with enrico. She verified that he can return to his housing in [place]. She also has the authority to arrange transportation back to [place] for him. However, she has to be able to access his bank account in order to manage this. She is still working on the logistics of this. Staff informed her that a keycase assembler will be needed for transport. If client is given a bus ticket he will likely get off at the first stop. Review of Systems Constitutional: Denies: fever, chills, weakness, weight change Eyes: Denies: eye pain, vision change Ears, Nose, Throat: Denies: ear pain, throat pain, dental pain, hearing loss, congestion Cardiovascular: Denies: chest pain, palpitations, dyspnea on exertion Respiratory: Denies: cough, dyspnea, wheezes Gastrointestinal: Denies: abdominal pain, nausea, vomiting, diarrhea, constipation Musculoskeletal: Denies: joint swelling, joint pain Neurological: Denies: headache, weakness, numbness, memory loss Psychiatric: Reports: depression, abnormal sleep pattern, auditory hallucinations, mood swings Objective: Exam Patient orientation: Yes Person, Yes Time, Yes Place Level of alertness: Alert Patient appearance: Disheveled Behavior: calm, cooperative Psychomotor activity: Normal Eye contact: Maintains Eye Contact Mood description: Depressed Affect description: congruent with mood Speech pattern: Normal rate, Normal rhythm, Normal tone Speech volume: Normal Thought process: Goal Oriented Thought content: Yes Suicidal ideation, No Homicidal ideation, No Overt delusions Perceptual disturbances: Yes Auditory hallucinations Judgment: Limited Insight: Partial Results - Vital Signs Vital Signs: Temp Pulse Resp BP 97.2 F L 85 18 119/88 05/04/17 07:53 05/04/17 07:53 05/04/17 07:53 05/04/17 07:53 - Labs Labs: Laboratory Results - last 24 hr 05/03/17 05/03/17 05/03/17 11:41 16:19 19:43 POC Glucose 251 H 286 H 267 H 05/04/17 07:58 POC Glucose 250 H Assessment and Plan (1) Schizophrenia Current visit: No Status: Acute Plan: Continue hospitalization, Close observation, Suicide Precautions per unit protocol, Encourage participation in unit milieu, Group Therapy, Monitor sleep, Monitor appetite Risks, benefits, side effects, alternatives discussed w/pt: Yes Patient agreeable to treatment: Yes Qualifiers: Schizophrenia type: paranoid schizophrenia Qualified Code(s): F20.0 - Paranoid schizophrenia Consult Discharge Plan - Plan Referrals: NONE,PCP [Primary Care Provider] -
[2017-05-04] MEDS: Insulin DETEMIR 100 UNIT/ML X5UNITS SQ SCH (21:04)
[2017-05-04] MEDS: traZODone 50 MG TABLET PO SCH (21:05)
[2017-05-05] MEDS: Levothyroxine 25 MCG TABLET PO SCH (06:23)
[2017-05-05] MEDS: Insulin LISPRO 300 UNITS/3 ML VIAL SQ SCH ×4 (08:11→20:41)
[2017-05-05] MEDS: amLODIPine 5 MG TABLET PO SCH (08:12)
[2017-05-05] MEDS: carBAMazepine 200 MG TABLET PO SCH ×2 (08:12→20:43)
--- NOTE | 2017-05-05 10:05 | Psychiatry Progress Note ---
Date of Encounter: 05/05/17 Time of Encounter: 09:59 Subjective Interval history: Not doing anything. Laying in bed all day. This telegraphic typewriter mechanic confronted him today about his decisions to isolate and not engage in treatment. Client states he doesn't feel like doing anything. However, he is also complaining about the fact that he doesn't do anything at home but sit and talk to his voices. Discussed how he needs to start distracting himself by staying active. May not feel like it at first but he will never break out of the cycle he is in if he doesn't force himself to get up and do things. Not attending groups. Not engaging with peers. Did tell staff he is now having VH. Did not mention VH to this telegraphic typewriter mechanic even when prompted to do so. Has an odd affect and strange body movements (hand gestures) at times but never appears outwardly psychotic. Thoughts are organized. No evidence of responding to IS. Very unusual presentation. Still saying he will kill himself if forced to return to [place]. Staff are still working with his guardian on possibilities but nothing will be resolved before the New Year as many people are on vacation. Review of Systems Constitutional: Denies: fever, chills, weakness, weight change Eyes: Denies: eye pain, vision change Ears, Nose, Throat: Denies: ear pain, throat pain, dental pain, hearing loss, congestion Cardiovascular: Denies: chest pain, palpitations, dyspnea on exertion Respiratory: Denies: cough, dyspnea, wheezes Gastrointestinal: Denies: abdominal pain, nausea, vomiting, diarrhea, constipation Musculoskeletal: Denies: joint swelling, joint pain Neurological: Denies: headache, weakness, numbness, memory loss Psychiatric: Reports: depression, abnormal sleep pattern, auditory hallucinations, mood swings Objective: Exam Patient orientation: Yes Person, Yes Time, Yes Place Level of alertness: Alert Patient appearance: Unkempt, Disheveled Behavior: calm Psychomotor activity: Normal Eye contact: Maintains Eye Contact Mood description: Depressed Affect description: congruent with mood Speech pattern: Normal rate, Normal rhythm, Normal tone Speech volume: Normal Thought process: Linear Thought content: Yes Suicidal ideation, No Homicidal ideation, No Overt delusions Perceptual disturbances: No Reacting to internal stimuli, Yes Auditory hallucinations Judgment: Limited Insight: Partial Results - Vital Signs Vital Signs: Temp Pulse Resp BP 97.9 F 91 16 122/85 05/05/17 09:05 05/05/17 09:05 05/05/17 09:05 05/05/17 09:05 - Labs Labs: Laboratory Results - last 24 hr 05/04/17 05/04/17 05/04/17 11:49 16:12 20:52 POC Glucose 264 H 235 H 362 H 05/05/17 07:59 POC Glucose 309 H Assessment and Plan (1) Schizophrenia Current visit: No Status: Acute Plan: Continue hospitalization, Close observation, Suicide Precautions per unit protocol, Encourage participation in unit milieu, Group Therapy, Monitor sleep, Monitor appetite Risks, benefits, side effects, alternatives discussed w/pt: Yes Patient agreeable to treatment: Yes Qualifiers: Schizophrenia type: paranoid schizophrenia Qualified Code(s): F20.0 - Paranoid schizophrenia Consult Discharge Plan - Plan Referrals: NONE,PCP [Primary Care Provider] -
[2017-05-05] MEDS: Insulin DETEMIR 100 UNIT/ML X5UNITS SQ SCH (20:41)
[2017-05-05] MEDS: traZODone 50 MG TABLET PO SCH (20:42)
[2017-05-06] MEDS: Levothyroxine 25 MCG TABLET PO SCH (07:51)
[2017-05-06] MEDS: Insulin LISPRO 300 UNITS/3 ML VIAL SQ SCH ×4 (07:56→20:21)
[2017-05-06] MEDS: amLODIPine 5 MG TABLET PO SCH (08:48)
[2017-05-06] MEDS: carBAMazepine 200 MG TABLET PO SCH ×2 (08:49→20:23)
--- NOTE | 2017-05-06 12:32 | Psychiatry Progress Note ---
Date of Encounter: 05/06/17 Time of Encounter: 12:27 Subjective Interval history: States he attended groups yesterday. Claims he did them all but the painting group. Staff report he is still sleeping all day and refusing activities with the excuse that his medications make him tired. Complains to this newspaper writer that he does nothing but talk to his voices all day but then balks at the idea of being out of bed and interacting with others. Seems to just want to sleep and live in the hospital. Acts inconvenienced whenever staff ask to talk to him. No real clinical changes. Overt psychosis not observed but he does have an unusual affect and he holds his hands in bizarre positions at times. Still waiting for an update from his guardian about discharge plans. Review of Systems Constitutional: Denies: fever, chills, weakness, weight change Eyes: Denies: eye pain, vision change Ears, Nose, Throat: Denies: ear pain, throat pain, dental pain, hearing loss, congestion Cardiovascular: Denies: chest pain, palpitations, dyspnea on exertion Respiratory: Denies: cough, dyspnea, wheezes Gastrointestinal: Denies: abdominal pain, nausea, vomiting, diarrhea, constipation Musculoskeletal: Denies: joint swelling, joint pain Neurological: Denies: headache, weakness, numbness, memory loss Psychiatric: Reports: depression, abnormal sleep pattern, auditory hallucinations, mood swings Objective: Exam Patient orientation: Yes Person, Yes Time, Yes Place Level of alertness: Alert Patient appearance: Unkempt, Disheveled Behavior: calm Psychomotor activity: Repetitive movements Eye contact: Maintains Eye Contact Mood description: Depressed Affect description: congruent with mood Speech pattern: Normal rate, Normal rhythm, Normal tone Speech volume: Normal Thought process: Linear Thought content: Yes Suicidal ideation, No Homicidal ideation, No Overt delusions Perceptual disturbances: No Reacting to internal stimuli, Yes Auditory hallucinations Judgment: Limited Insight: Partial Results - Vital Signs Vital Signs: Temp Pulse Resp BP 98.0 F 90 18 129/97 05/06/17 09:00 05/06/17 09:00 05/06/17 09:00 05/06/17 09:00 - Labs Labs: Laboratory Results - last 24 hr 05/05/17 05/05/17 05/06/17 16:18 20:39 07:54 POC Glucose 246 H 340 H 299 H 05/06/17 11:16 POC Glucose 319 H Assessment and Plan (1) Schizophrenia Current visit: No Status: Acute Plan: Continue hospitalization, Close observation, Suicide Precautions per unit protocol, Encourage participation in unit milieu, Group Therapy, Monitor sleep, Monitor appetite Risks, benefits, side effects, alternatives discussed w/pt: Yes Patient agreeable to treatment: Yes Qualifiers: Schizophrenia type: paranoid schizophrenia Qualified Code(s): F20.0 - Paranoid schizophrenia Consult Discharge Plan - Plan Referrals: NONE,PCP [Primary Care Provider] -
[2017-05-06] MEDS: traZODone 50 MG TABLET PO SCH (20:22)
[2017-05-06] MEDS: Insulin DETEMIR 100 UNIT/ML X5UNITS SQ SCH (20:31)
[2017-05-07] MEDS: Levothyroxine 25 MCG TABLET PO SCH (05:24)
[2017-05-07] MEDS: Insulin LISPRO 300 UNITS/3 ML VIAL SQ SCH ×4 (07:59→20:46)
[2017-05-07] MEDS: carBAMazepine 200 MG TABLET PO SCH ×2 (08:16→20:41)
[2017-05-07] MEDS: amLODIPine 5 MG TABLET PO SCH (08:17)
--- NOTE | 2017-05-07 11:08 | Psychiatry Progress Note ---
Date of Encounter: 05/07/17 Time of Encounter: 11:02 Subjective Interval history: Client was out of bed more yesterday. Nursing staff reported he socialized some in the evening and again this morning. Seems to be making a small effort. Client reports no relief with the medications. States voices have not dulled at all. Discussed backing off the medications since he is not getting any symptom relief and he feels so tired all of the time. "I feel like I am sleeping my life away." Majority of meds are at night. However, he is getting 50mg of Seroquel in the morning and afternoon. Discussed stopping these doses and client agreeable. He did ask if different medications might be more helpful. Given that he is taking two antipsychotics at decent doses with no subjective relief, doubt med changes are the answer. Encouraged him to stay up and active today. Review of Systems Constitutional: Denies: fever, chills, weakness, weight change Eyes: Denies: eye pain, vision change Ears, Nose, Throat: Denies: ear pain, throat pain, dental pain, hearing loss, congestion Cardiovascular: Denies: chest pain, palpitations, dyspnea on exertion Respiratory: Denies: cough, dyspnea, wheezes Gastrointestinal: Denies: abdominal pain, nausea, vomiting, diarrhea, constipation Musculoskeletal: Denies: joint swelling, joint pain Neurological: Denies: headache, weakness, numbness, memory loss Psychiatric: Reports: depression, abnormal sleep pattern, auditory hallucinations, mood swings Objective: Exam Patient orientation: Yes Person, Yes Time, Yes Place Level of alertness: Alert Patient appearance: Disheveled Behavior: calm, cooperative Psychomotor activity: Normal Eye contact: Maintains Eye Contact Mood description: Depressed Affect description: congruent with mood Speech pattern: Normal rate, Normal rhythm, Normal tone Speech volume: Normal Thought process: Linear Thought content: No Suicidal ideation, No Homicidal ideation, No Overt delusions Perceptual disturbances: No Reacting to internal stimuli, Yes Auditory hallucinations Judgment: Limited Insight: Partial Results - Vital Signs Vital Signs: Temp Pulse Resp BP 97.4 F L 93 14 133/97 05/07/17 09:00 05/07/17 09:00 05/07/17 09:00 05/07/17 09:00 - Labs Labs: Laboratory Results - last 24 hr 12/31/17 12/31/17 12/31/17 11:16 16:24 20:10 POC Glucose 319 H 282 H 298 H 05/07/17 07:52 POC Glucose 294 H Assessment and Plan (1) Schizophrenia Current visit: No Status: Acute Plan: Continue hospitalization, Close observation, Suicide Precautions per unit protocol, Encourage participation in unit milieu, Group Therapy, Monitor sleep, Monitor appetite Risks, benefits, side effects, alternatives discussed w/pt: Yes Patient agreeable to treatment: Yes Qualifiers: Schizophrenia type: paranoid schizophrenia Qualified Code(s): F20.0 - Paranoid schizophrenia Consult Discharge Plan - Plan Referrals: NONE,PCP [Primary Care Provider] -
[2017-05-07] MEDS: hydrOXYzine pamoate 25 MG CAPSULE PO PRN (16:17)
[2017-05-07] MEDS: traZODone 50 MG TABLET PO SCH (20:41)
[2017-05-07] MEDS: Insulin DETEMIR 100 UNIT/ML X5UNITS SQ SCH (20:42)
[2017-05-08] MEDS: Levothyroxine 25 MCG TABLET PO SCH (06:42)
[2017-05-08] MEDS: Insulin LISPRO 300 UNITS/3 ML VIAL SQ SCH ×4 (08:07→21:01)
[2017-05-08] MEDS: hydrOXYzine pamoate 25 MG CAPSULE PO PRN (08:44)
[2017-05-08] MEDS: carBAMazepine 200 MG TABLET PO SCH ×2 (08:44→21:00)
[2017-05-08] MEDS: amLODIPine 5 MG TABLET PO SCH (08:44)
--- NOTE | 2017-05-08 16:19 | Psychiatry Progress Note ---
Date of Encounter: 05/09/17 Time of Encounter: 16:05 Subjective Interval history: Patient tells me "I am alright I guess today". He states he continues to hear voices of men and women and that medication has never helped with that no matter what medication or what dose. He states that he slept approximate 4 hours last night which is improvement in his sleep. He explains to me that he was off his psychiatric medications for 5 days prior to admission. He continues to experience low energy and abnormal blood glucose levels. He understands there is a direct correlation between his medical issues and his mental health regarding his energy levels. He states he feels safe here on the unit is hopeful of feeling better soon. He denies any active suicidal ideation but still has thoughts of dying. He denies any homicidal ideation. He denies any visual hallucinations. He talks about wanting to relocate to [facility], that the isolation he experiences in [place] being away from his children and family that he is estranged from stresses his mental health. That is why he wants to move here from [place]. He believes living in [facility] will help him reconnect with his children. He is aware that he has a conservator in [place] and needs to take care of legal paperwork there to move to [place]. He states that he does not feel that that is right but will work with the psychotherapist social worker to figure out how to get to [place] to rectify that and then moved to [place]. Review of Systems Gastrointestinal: Reports: other (reports bright red blood rectally after a BM today. No constipation. New onset) Psychiatric: Reports: depression, abnormal sleep pattern, auditory hallucinations, mood swings Objective: Exam Patient orientation: Yes Person, Yes Time, Yes Place, Yes Circumstance Level of alertness: Alert Patient appearance: Well Groomed Behavior: anxious Psychomotor activity: Normal Eye contact: Maintains Eye Contact Mood description: Anxious Affect description: congruent with mood Speech pattern: Normal rate, Normal rhythm, Normal tone Speech volume: Normal Thought process: Goal Oriented Thought content: Yes Intact Judgment: Fair Insight: Partial (He does not want to return to [place] even though legally he knows he needs to.) Results - Vital Signs Vital Signs: Temp Pulse Resp BP 97.8 F 91 16 132/95 05/08/17 09:00 05/08/17 09:00 05/08/17 09:00 05/08/17 09:00 - Labs Labs: Laboratory Results - last 24 hr 05/07/17 05/07/17 05/08/17 16:34 20:07 08:02 POC Glucose 366 H 354 H 375 H 05/08/17 11:36 POC Glucose 266 H Assessment and Plan (1) Schizophrenia Current visit: No Status: Acute Plan: Continue hospitalization, Close observation, Suicide Precautions per unit protocol, Encourage participation in unit milieu, Group Therapy, Monitor sleep Risks, benefits, side effects, alternatives discussed w/pt: Yes Patient agreeable to treatment: Yes Qualifiers: Schizophrenia type: paranoid schizophrenia Qualified Code(s): F20.0 - Paranoid schizophrenia (2) DM2 (diabetes mellitus, type 2) Current visit: No Status: Acute Risks, benefits, side effects, alternatives discussed w/pt: Yes (Medical consult ordered for improving blood glucose levels) Qualifiers: Diabetes mellitus complication status: without complication Diabetes mellitus healthcare network consultant insulin use: with healthcare network consultant use Qualified Code(s): E11.9 - Type 2 diabetes mellitus without complications; Z79.4 - intermediate (current) use of insulin; Z79.4 - intermediate (current) use of insulin; Z79.4 - intermediate ( current) use of insulin; Z79.4 - rehabilitation aide (current) use of insulin (3) Rectal bleeding Current visit: Yes Status: Acute Plan: Other (Medical consult ordered for new onset, denies trauma, not constipated) Consult Discharge Plan - Plan Referrals: NONE,PCP [Primary Care Provider] -
[2017-05-08] MEDS: traZODone 50 MG TABLET PO SCH (21:01)
[2017-05-08] MEDS: Insulin DETEMIR 100 UNIT/ML X5UNITS SQ SCH (21:01)
[2017-05-09] MEDS: traZODone 50 MG TABLET PO PRN ×2 (03:08→23:47)
[2017-05-09] MEDS: Levothyroxine 25 MCG TABLET PO SCH ×2 (07:13→07:53)
[2017-05-09] MEDS: amLODIPine 5 MG TABLET PO SCH (07:51)
[2017-05-09] MEDS: carBAMazepine 200 MG TABLET PO SCH ×2 (07:51→21:38)
[2017-05-09] MEDS: Insulin LISPRO 300 UNITS/3 ML VIAL SQ SCH ×4 (07:54→21:41)
--- NOTE | 2017-05-09 11:01 | Psychiatry Progress Note ---
Date of Encounter: 05/09/17 Time of Encounter: 10:30 Subjective Interval history: Patient tells me "I feel pretty good. I did not get a lot of sleep last night because the voices, but I feel good". He denies any active suicidal or homicidal ideation, denies any visual hallucinations. When I asked him about auditory hallucinations she states he has ringing in his left ear, no voices at this time. I discussed with him his reluctance to go to [place] which is where his conservator is, which is where he has to return. I explained to them the facts and my concern for him that to stay in [place] he would not have access to any money, he would not have access to the same care with his health insurance as he does in [place]. The legal issues and ramifications for him doing this; if he returned to [place] dealt with the legal system as far as his conservatorship, then he possibly transfer him to [place] once it is done. He verbalize understanding this and said "all right. I will go back". He states that he is anxious about it that overall is starting to come to accept it. He is going to try and speak with marriage and family social worker today and potentially set up a teleconference with his conservator in [place] to potentially start the process towards discharge as he is more stable in his mental health. Review of Systems Psychiatric: Reports: depression, abnormal sleep pattern, auditory hallucinations, mood swings Objective: Exam Patient orientation: Yes Person, Yes Time, Yes Place, Yes Circumstance Level of alertness: Alert, Follows commands Patient appearance: Unkempt Behavior: anxious Psychomotor activity: Normal Eye contact: Maintains Eye Contact Mood description: Depressed, Anxious Affect description: congruent with mood Speech pattern: Normal rate, Normal rhythm, Normal tone Speech volume: Normal Thought process: Intact Thought content: Yes Intact Judgment: Fair Insight: Partial Results - Vital Signs Vital Signs: Temp Pulse Resp BP 97.6 F 83 16 126/89 05/08/17 21:00 05/08/17 21:00 05/08/17 21:00 05/08/17 21:00 - Labs Labs: Laboratory Results - last 24 hr 05/08/17 05/08/17 05/08/17 11:36 16:20 20:03 POC Glucose 266 H 235 H 270 H 05/09/17 07:46 POC Glucose 252 H Assessment and Plan (1) Schizophrenia Current visit: No Status: Acute Plan: Continue hospitalization, Close observation, Suicide Precautions per unit protocol, Encourage participation in unit milieu, Group Therapy, Monitor sleep Risks, benefits, side effects, alternatives discussed w/pt: Yes Patient agreeable to treatment: Yes Qualifiers: Schizophrenia type: paranoid schizophrenia Qualified Code(s): F20.0 - Paranoid schizophrenia (2) DM2 (diabetes mellitus, type 2) Current visit: No Status: Acute Risks, benefits, side effects, alternatives discussed w/pt: Yes (Medical consult ordered for improving blood glucose levels) Qualifiers: Diabetes mellitus complication status: without complication Diabetes mellitus watermelon harvesting supervisor insulin use: with watermelon harvesting supervisor use Qualified Code(s): E11.9 - Type 2 diabetes mellitus without complications; Z79.4 - halfway (current) use of insulin; Z79.4 - long term care social worker (current) use of insulin; Z79.4 - halfway ( current) use of insulin; Z79.4 - long term care social worker (current) use of insulin (3) Rectal bleeding Current visit: Yes Status: Acute Consult Discharge Plan - Plan Referrals: NONE,PCP [Primary Care Provider] -
[2017-05-09] MEDS: hydrOXYzine pamoate 25 MG CAPSULE PO PRN ×2 (15:00→23:43)
[2017-05-09] MEDS: traZODone 50 MG TABLET PO SCH (21:40)
[2017-05-09] MEDS: Insulin DETEMIR 100 UNIT/ML X5UNITS SQ SCH (21:43)
[2017-05-10] MEDS: carBAMazepine 200 MG TABLET PO SCH ×2 (07:49→20:39)
[2017-05-10] MEDS: Levothyroxine 25 MCG TABLET PO SCH (07:49)
[2017-05-10] MEDS: amLODIPine 5 MG TABLET PO SCH (07:49)
[2017-05-10] MEDS: Insulin LISPRO 300 UNITS/3 ML VIAL SQ SCH ×4 (07:49→20:37)
--- NOTE | 2017-05-10 16:37 | Psychiatry Progress Note ---
Date of Encounter: 05/10/17 Time of Encounter: 16:15 Subjective Interval history: When I met with the patient today and asked him how he was he stated "I got some good sleep last night" He told me that he went to a couple groups today. He felt very anxious about going back to [place], dealing with the fact that he had to return there and he understood that now. He spoke to me about his daughter coming to visit him dominique and being very nervous about that. He got tearful when he spoke about his daughter and the fact that he has not seen any of his children 10+ years. I asked him about auditory or visual hallucinations, he stated yes. He was still having the buzzing in his ear. I asked more detailed questions about this. He is not hearing voices at this time. He has a history of head trauma. Since then he has had ringing in his ear. It is chronic. This had been worked up in the past by ENT's and diagnosed with tinnitus. He states that it never goes away and I explained to him again what it was that that was not a hallucination. In regards to his mood, he still feeling a little depressed at 6/10, but that was an improvement. More than anything, his overwhelming mood is anxiety. Anticipating meeting with his daughter dominique for the 1st time. Review of Systems Psychiatric: Reports: depression, abnormal sleep pattern, auditory hallucinations, mood swings Objective: Exam Patient orientation: Yes Person, Yes Time, Yes Place Level of alertness: Alert Patient appearance: Well Groomed Behavior: anxious, tearful Psychomotor activity: Normal Eye contact: Fleeting Contact Mood description: Anxious Affect description: congruent with mood Speech pattern: Normal rate, Normal rhythm Speech volume: Soft/Quiet Thought process: Linear Thought content: Yes Intact Judgment: Fair Insight: Partial Results - Vital Signs Vital Signs: Temp Pulse Resp BP 98.2 F 94 16 131/88 05/10/17 08:26 05/10/17 08:26 05/10/17 08:26 05/10/17 08:26 - Labs Labs: Laboratory Results - last 24 hr 05/09/17 05/09/17 05/10/17 16:17 20:43 07:44 POC Glucose 338 H 280 H 260 H 05/10/17 05/10/17 11:10 15:57 POC Glucose 268 H 268 H Assessment and Plan (1) Schizophrenia Current visit: Yes Status: Chronic Plan: Continue hospitalization, Close observation, Encourage participation in unit milieu, Group Therapy, Monitor sleep Additional Plan: Patient appears to be having some improvement in symptoms.. We will continue to monitor and coordinate further medical adjustments through patient's guardian. Encourage positive coping strategies. Risks, benefits, side effects, alternatives discussed w/pt: Yes Patient agreeable to treatment: Yes Qualifiers: Schizophrenia type: paranoid schizophrenia Qualified Code(s): F20.0 - Paranoid schizophrenia (2) DM2 (diabetes mellitus, type 2) Current visit: Yes Status: Chronic Risks, benefits, side effects, alternatives discussed w/pt: Yes (Medical consult ordered for improving blood glucose levels) Qualifiers: Diabetes mellitus complication status: without complication Diabetes mellitus retirement insulin use: with retirement use Qualified Code(s): E11.9 - Type 2 diabetes mellitus without complications; Z79.4 - traffic reporter (current) use of insulin; Z79.4 - traffic reporter (current) use of insulin; Z79.4 - traffic reporter ( current) use of insulin; Z79.4 - traffic reporter (current) use of insulin (3) Rectal bleeding Current visit: Yes Status: Acute Consult Discharge Plan - Plan Referrals: NONE,PCP [Primary Care Provider] -
[2017-05-10] MEDS: traZODone 50 MG TABLET PO SCH (20:38)
[2017-05-10] MEDS: traZODone 50 MG TABLET PO PRN (20:41)
[2017-05-10] MEDS: hydrOXYzine pamoate 25 MG CAPSULE PO PRN (20:41)
[2017-05-10] MEDS: Insulin DETEMIR 100 UNIT/ML X5UNITS SQ SCH (21:11)
[2017-05-11] MEDS: Levothyroxine 25 MCG TABLET PO SCH (07:05)
[2017-05-11] MEDS: Insulin LISPRO 300 UNITS/3 ML VIAL SQ SCH ×4 (08:00→22:15)
[2017-05-11] MEDS: amLODIPine 5 MG TABLET PO SCH (08:40)
[2017-05-11] MEDS: carBAMazepine 200 MG TABLET PO SCH ×2 (08:41→20:55)
[2017-05-11 13:39] LABS: Basophils % 0.6 %; Eosinophils # 0.3 K/mcL (0.0-0.6); Eosinophils % 3.8 %; Hematocrit 43.4 % (37.5-50.1); Hemoglobin 14.9 g/dL (12.9-16.9); Immature Granulocytes % 0.9 % (0-4); Lymphocytes # 1.8 K/mcL (0.6-4.6); Lymphocytes % 26.2 %; Mean Corpuscular HGB Conc 34.3 g/dL (31.6-35.5); Mean Corpuscular Hemoglobin 30.2 pg (28.0-33.3); Mean Corpuscular Volume 87.9 fL (83.0-100.0); Mean Platelet Volume 10.2 fL (9.4-12.4); Monocytes # 0.6 K/mcL (0.0-1.3); Monocytes % 8.2 %; Neutrophils # 4.2 K/mcL (1.6-8.9); Platelet Count 192 K/mcL (140-400); Red Blood Count 4.94 M/mcL (4.19-5.50); Red Cell Distribution Width 13.1 % (11.5-14.5); Segmented Neutrophils % 60.3 %
[2017-05-11 13:47] LABS: BUN/Creatinine Ratio 18 (6-26); Blood Urea Nitrogen 17 mg/dL (6-20); Calcium 9.5 mg/dL (8.6-10.3); Carbon Dioxide 28 mEq/L (23-29); Chloride 97 mEq/L (98-107); Glucose 289 mg/dL (70-105); Magnesium 1.7 mg/dL (1.6-2.6); Osmolality,Calculated 282 (280-300); Potassium 3.8 mEq/L (3.5-5.1); Sodium 130 mEq/L (136-145); eGFR For African Americans > 60 (> 60); eGFR For Non-African Americans > 60 (> 60)
--- NOTE | 2017-05-11 15:07 | Psychiatry Progress Note ---
Date of Encounter: 05/11/17 Time of Encounter: 14:10 Subjective Interval history: "I am doing okay I guess. I am in a better mood, but I've got butterflies". Patient tells me that he slept about 7 hours last night. He is not feeling actively suicidal but this feeling anxious today the stress is making him talk things over in his head. He is going to visit with his daughter dominique and her dominique on the unit. He has not seeing his daughter in more than 10 years. His mood is not overly elevated; he is trying to stay calm and was trying to lay in bed to relax to keep calm. He is not feeling depressed but happy because the upcoming events seeing his daughter. He denies any suicidal/ homicidal ideation. He denies any auditory or visual hallucinations. He denies any active auditory hallucinations at this time. We talked about the ringing in his ears and the diagnosis of tinnitus, which is most likely what he has from a previous head injury. He denies any side effects of his medication. He does not feel safe at this time being discharged but is still coping in dealing with the fact that he has to go back to [place] and trying to work the details of that transport back. He states he will know more tomorrow after talks to his daughter to see if he wants to move here. Review of Systems Psychiatric: Reports: depression, abnormal sleep pattern, auditory hallucinations, mood swings Objective: Exam Patient orientation: Yes Person, Yes Place, Yes Circumstance Level of alertness: Alert Patient appearance: Unkempt Behavior: anxious Psychomotor activity: Normal Eye contact: Maintains Eye Contact Mood description: Anxious Affect description: congruent with mood Speech pattern: Normal rate, Normal rhythm, Normal tone Speech volume: Normal Thought process: Goal Oriented Thought content: Yes Intact Judgment: Fair Insight: Partial Results - Vital Signs Vital Signs: Temp Pulse Resp BP 98.5 F 80 16 123/81 05/11/17 09:00 05/11/17 09:00 05/11/17 09:00 05/11/17 09:00 - Labs Labs: Laboratory Results - last 24 hr 05/10/17 05/10/17 05/11/17 15:57 20:11 07:55 WBC RBC Hgb Hct MCV MCH MCHC RDW Plt Count MPV Immature Gran % Seg Neutrophils % Lymphocytes % Monocytes % Eosinophils % Basophils % Neutrophils # Lymphocytes # Monocytes # Eosinophils # Basophils # Sodium Potassium Chloride Carbon Dioxide BUN Creatinine Est GFR ( Amer) Est GFR (Non-Af Amer) BUN/Creatinine Ratio Glucose POC Glucose 268 H 305 H 279 H Calculated Osmolality Calcium Magnesium 05/11/17 05/11/17 05/11/17 11:33 13:02 13:02 WBC 6.9 RBC 4.94 Hgb 14.9 Hct 43.4 MCV 87.9 MCH 30.2 MCHC 34.3 RDW 13.1 Plt Count 192 MPV 10.2 Immature Gran % 0.9 Seg Neutrophils % 60.3 Lymphocytes % 26.2 Monocytes % 8.2 Eosinophils % 3.8 Basophils % 0.6 Neutrophils # 4.2 Lymphocytes # 1.8 Monocytes # 0.6 Eosinophils # 0.3 Basophils # 0.0 Sodium 130 L Potassium 3.8 Chloride 97 L Carbon Dioxide 28 BUN 17 Creatinine 0.95 Est GFR ( Amer) > 60 Est GFR (Non-Af Amer) > 60 BUN/Creatinine Ratio 18 Glucose 289 H POC Glucose 244 H Calculated Osmolality 282 Calcium 9.5 Magnesium 1.7 Assessment and Plan (1) Schizophrenia Current visit: Yes Status: Chronic Plan: Continue hospitalization, Close observation, Suicide Precautions per unit protocol, Encourage participation in unit milieu, Group Therapy, Monitor sleep Risks, benefits, side effects, alternatives discussed w/pt: Yes Patient agreeable to treatment: Yes Qualifiers: Schizophrenia type: paranoid schizophrenia Qualified Code(s): F20.0 - Paranoid schizophrenia (2) DM2 (diabetes mellitus, type 2) Current visit: Yes Status: Chronic Risks, benefits, side effects, alternatives discussed w/pt: Yes (Medical consult ordered for improving blood glucose levels) Qualifiers: Diabetes mellitus complication status: without complication Diabetes mellitus penitentiary insulin use: with termite control service representative use Qualified Code(s): E11.9 - Type 2 diabetes mellitus without complications; Z79.4 - intermediate card tender (current) use of insulin; Z79.4 - intermediate card tender (current) use of insulin; Z79.4 - intermediate card tender ( current) use of insulin; Z79.4 - intermediate card tender (current) use of insulin (3) Rectal bleeding Current visit: Yes Status: Acute Consult Discharge Plan - Plan Additional Instructions: Making plans with the health care social worker to discharge and return to [place] to try to get his conservatorship transferred to [place]. He will know more about if he wants to move here once he talks to his daughter. Discharge planning will move forward faster after this Referrals: Santos Rousseau. [Other] - 05/18/17 12:45 pm (You will see Dr. Thornton on 05/18/2017 at 12:45 PM for outpatient psychiatric assessment and medication management services. You will then see the ACT nurse and ACT team case management staff on 05/18/2017 at 1:15 PM.)
[2017-05-11] MEDS ORDERED: Insulin DETEMIR 100 UNIT/ML X5UNITS SQ SCH (17:13)
--- NOTE | 2017-05-11 17:17 | Event Note ---
Date of Encounter: 05/11/17 Time of Encounter: 17:14 Patient seen and examined with DRILL HAND. Uncontrolled DM. According to insulin requirements will increase lantus by 20% to 35 units daily and start premeal insulin 3 units TID. Check A1C. He has rectal bleed (3 episodes BRBPR), suspect hemorroidal in origin. Hemoglobin is stable. Will need GI for colonoscopy either inpatient or outpatient depends on progress. Last scope 10 years ago. He is not on any antiplatelet or anticoagulant medications. Thank you for consultation
--- NOTE | 2017-05-11 18:06 | Internal Medicine Consult Note ---
Date of Encounter: 05/11/17 Time of Encounter: 17:00 - Assessment and Plan (1) Rectal bleeding Current Visit: Yes Status: Acute Assessment and plan: Acute rectal bleeding x3 days. Pt. reports he had dark red blood w/clots that was substantial in toilet bowl on previous Sunday, Sunday, and Sunday. Denies previous hx or occurrence. Pt. reports he had colonoscopy 10 years ago that was positive for polyps. GI consult ordered to assess for need for colonoscopy ( either inpt or outpt). Fecal hemoccult ordered. Pt. denies current antiplatelet or anticoagulation tx. Pharmacologic DVT prophylaxis contraindicated due to reported rectal bleeding. Prilosec 40 mg daily PO. Pt. discussed w/Dr. Morton who is in agreement w/plan of care. Pt. is at high risk for GI event based on recent hematochezia and hx of polyps w/colonoscopy ten years ago. Inpatient. (2) DM2 (diabetes mellitus, type 2) Current Visit: Yes Status: Chronic Assessment and plan: Hx of chronic diabetes that is not well controlled. Pt. states he takes 44 units of Lantus at 14:00 daily but cannot get BG <200. Reports BG usually ranges between 200-300 daily. States he tried to be compliant w/diet but shows knowledge deficit regarding role of carbohydrates in diabetes. Field Service Consultant consult ordered. Will continue pts. Lantus and increase by 20%. Start pre-meal insulin @ 3 units. Medium dose correction insulin sliding scale w/ hypoglycemic protocol. BG checks ACHS. A1c in a.m. labs. Qualifiers: Diabetes mellitus complication status: without complication Diabetes mellitus penitentiary insulin use: with penitentiary use Qualified Code(s): E11.9 - Type 2 diabetes mellitus without complications; Z79.4 - termite technician (current) use of insulin; Z79.4 - detention (current) use of insulin; Z79.4 - termite technician ( current) use of insulin; Z79.4 - termite technician (current) use of insulin (3) HTN (hypertension) Current Visit: Yes Status: Chronic Assessment and plan: Hx of chronic HTN. Monitor pt. and VS. Continue pts. Invega and Norvasc. Qualifiers: Hypertension type: essential hypertension Qualified Code(s): I10 - Essential (primary) hypertension (4) HLD (hyperlipidemia) Current Visit: Yes Status: Chronic Assessment and plan: Hx of chronic HLD. Pt. does not currently take statin. Lipid panel in a.m. labs. Consider adding Lipitor daily based on lipid panel results. Qualifiers: Hyperlipidemia type: pure hypercholesterolemia Qualified Code(s): E78.00 - Pure hypercholesterolemia, unspecified; E78.0 - Pure hypercholesterolemia (5) Schizophrenia Current Visit: Yes Status: Chronic Assessment and plan: Hx of paranoid schizophrenia and depression. Continue patient's trazodone, carbamazepine, and Seroquel. Qualifiers: Schizophrenia type: paranoid schizophrenia Qualified Code(s): F20.0 - Paranoid schizophrenia (6) DVT prophylaxis Current Visit: Yes Status: Acute Assessment and plan: Bilateral anti-embolic stockings for DVT prophylaxis. Pharmacologic DVT prophylaxis contraindicated due to patient's reported recent rectal bleeding. Internal Medicine - CN: HPI - Data of Consult Patient: new to practice Consult date: 05/11/17 Requesting Physician: Radha Mendez MD - Consult Narrative Reason for consult: Uncontrolled DM and rectal bleeding History of present illness: Mr. Plummer is a 51 year old male with medical hx of HTN, HLD, and DM presents from with chief complaint of uncontrolled diabetes and recent incidence of rectal bleeding. Pt. reports that he is unable to keep his BG under 200 and that it normally runs between 200-300 daily. Pt. states he is compliant w/insulin use and tries to follow a diabetic diet but likes carbs. Pt. also reports incidence of rectal bleeding x3 on previous Sunday, Sunday, and Sunday. Pt. describes output as dark red w/clots and a substantial amount in the toilet bowl. Denies previous occurrence. Reports he had a colonoscopy 10 years ago which was positive for polyps. Pt. reports dizziness w/ high BG but denies recent illness, fever, chills, nausea, vomiting, cough, SOB, chest pain, palpitations, changes in vision, numbness, tingling, pre-syncope, or syncope. Past Med Surg Social Fam HX - Past Medical History Source: patient Medical history: diabetes, hyperlipidemia, hypertension Psychiatric history: schizophrenia, previous psychiatric hospitalization - Past Surgical History Surgical History: no surgical history - Social History Smoking Status: Never smoker Alcohol use: none Drug use: none Activity Level: Independent ambulation Recent Out of Country Travel Within the Last 8 Weeks: No Exposure or Possible Exposure to Illness During Travel: No - Family History Father Race: Family Member Ethnicity: Non- Living Status: Age at : 38 Cause of : Renal failure Hx Family Genitourinary Disorders: Yes (CKD) Mother Race: Family Member Ethnicity: Non- Living Status: Still Living Hx Family Medical Disorders: No Brother Race: Family Member Ethnicity: Non- Living Status: Still Living Hx Family Medical Disorders: No Sister Race: Family Member Ethnicity: Non- Living Status: Age at : 48 Cause of : Thyroid cancer Hx Family Cancer: Yes (Thyroid) - Constitutional Constitutional: as per HPI - EENT Eyes: as per HPI Ears: as per HPI Nose, mouth and throat: as per HPI - Breasts Breasts: as per HPI - Cardiovascular Cardiovascular ROS IM: as per HPI - Respiratory Respiratory: as per HPI - Gastrointestinal Gastrointestinal: as per HPI, hematochezia - Genitourinary Genitourinary ROS male: as per HPI - Musculoskeletal Musculoskeletal ROS IM: as per HPI - Integumentary Integumentary IM: as per HPI - Neurological Neurological ROS: as per HPI - Psychiatric Psychiatric: as per HPI, depression, hallucinations (Auditory), paranoia, other (Schizophrenia) - Endocrine Endocrine IM: as per HPI - Hematologic/Lymphatic Hematologic/Lymphatic: as per HPI - Allergic/Immunologic Allergic/Immunologic: as per HPI Internal Medicine - CN: Meds Paliperidone [Invega] 6 mg PO QAM 04/20/17 [History] Quetiapine Fumarate [Seroquel] 600 mg PO HS 04/20/17 [History] Trazodone HCl 150 mg PO HS 04/20/17 [History] carBAMazepine [Tegretol] 400 mg PO BID 04/20/17 [History] Docusate [Colace] 100 mg PO BID PRN capsule 04/26/17 [Rx] HYDROcodone/Acet 5/325 mg [[place] 5-325 mg] 1 tab PO Q4HR PRN #4 tablet 04/26/17 [Rx] Insulin DETEMIR [Levemir] 30 unit SQ HS [id number] 04/26/17 [Rx] Insulin LISPRO [HumaLOG] 0 units SQ HS vial 04/26/17 [Rx] Insulin LISPRO [HumaLOG] 0 units SQ TIDAC vial 04/26/17 [Rx] Quetiapine Fumarate [Seroquel] 50 mg PO 0900,1500 tablet 04/26/17 [Rx] amLODIPine [Norvasc] 5 mg PO DAILY tablet 04/26/17 [Rx] 3 Allergy/AdvReac Type Severity Reaction Status Date / Time No Known Allergies Allergy Verified 04/18/17 23:49 Internal Medicine - CN: Exam - Constitutional Vitals: Temp Pulse Resp BP 98.5 F 80 16 123/81 05/11/17 09:00 05/11/17 09:00 05/11/17 09:00 05/11/17 09:00 General appearance IM: Present: cooperative, A&O X 3, morbidly obese, pleasant, no acute distress, answers questions appropriately - Head Head exam: Present: atraumatic, normal inspection - Eye Eye exam: Present: PERRL, conjuntiva pink, sclera anicteric Pupils: Present: PERRL - ENT ENT exam: Present: normal exam - Neck Neck exam general surgery: Present: normal inspection, supple, trachea midline - Respiratory Respiratory exam: Present: CTAB - Cardiovascular Cardiovascular exam IM: Present: RRR, +S1, +S2 - GI/Abdominal GI/Abdominal exam IM: Present: normal bowel sounds, soft, no peritoneal signs - Rectal Rectal exam: Present: deferred - Additional comments: exam deferred. - Extremities Exam Extremities exam IM: Present: normal inspection, warm, radial pulses palpable and symmetrical - Back Exam Back exam: Present: normal inspection - Neurological Exam Neurological exam: Present: alert, oriented X3, no focal deficits, strengths equal and symetr throughout - Psychiatric Psychiatric exam: Present: normal affect, normal mood - Skin Skin exam IM: Present: dry, intact Internal Medicine - CN: Reslt - Labs CBC & Chem 7: 05/11/17 13:02 05/11/17 13:02 Labs: Short CBC 05/11/17 Range/Units 13:02 WBC 6.9 (4.3-11.1) K/mcL Hgb 14.9 (12.9-16.9) g/dL Hct 43.4 (37.5-50.1) % Plt Count 192 (140-400) K/mcL Neutrophils # 4.2 (1.6-8.9) K/mcL BMP 05/11/17 13:02 Sodium 130 L Potassium 3.8 Chloride 97 L Carbon Dioxide 28 BUN 17 Creatinine 0.95 Glucose 289 H Calcium 9.5 Consult Discharge Plan - Plan Referrals: NONE,PCP [Primary Care Provider] -
[2017-05-11] MEDS: hydrOXYzine pamoate 25 MG CAPSULE PO PRN (20:55)
[2017-05-11] MEDS: traZODone 50 MG TABLET PO SCH (20:55)
[2017-05-11] MEDS: traZODone 50 MG TABLET PO PRN (20:55)
[2017-05-12] MEDS: Levothyroxine 25 MCG TABLET PO SCH (06:47)
[2017-05-12] MEDS: Insulin LISPRO 300 UNITS/3 ML VIAL SQ SCH ×7 (07:57→20:46)
[2017-05-12] MEDS: amLODIPine 5 MG TABLET PO SCH (08:01)
[2017-05-12] MEDS: carBAMazepine 200 MG TABLET PO SCH ×2 (08:01→22:38)
[2017-05-12] MEDS ORDERED: Insulin DETEMIR 100 UNIT/ML X5UNITS SQ ONE (08:38)
--- NOTE | 2017-05-12 08:42 | Internal Med Progress Note ---
Date of Encounter: 05/12/17 Time of Encounter: 08:45 - Assessment and plan (1) Rectal bleeding Current Visit: Yes Status: Acute Assessment and plan: Hemoglobin hemodynamically stable. A GI consult has been ordered yesterday. Continue PPI. (2) HTN (hypertension) Current Visit: Yes Status: Chronic Assessment and plan: Blood pressure stable. Continue with amlodipine. Qualifiers: Hypertension type: essential hypertension Qualified Code(s): I10 - Essential (primary) hypertension (3) DM2 (diabetes mellitus, type 2) Current Visit: Yes Status: Chronic Assessment and plan: Increase Levemir to 45 units daily. Continue with pre-meal boluses with 3 units of Humalog. Continue with insulin sliding scale. Continue with Accu- Cheks. Check hemoglobin A1c Qualifiers: Diabetes mellitus complication status: without complication Diabetes mellitus snf insulin use: with buttermaker helper use Qualified Code(s): E11.9 - Type 2 diabetes mellitus without complications; Z79.4 - supervisor intermediates (current) use of insulin; Z79.4 - FDC (current) use of insulin; Z79.4 - FDC ( current) use of insulin; Z79.4 - FDC (current) use of insulin (4) Schizophrenia Current Visit: Yes Status: Chronic Assessment and plan: Management per primary Qualifiers: Schizophrenia type: paranoid schizophrenia Qualified Code(s): F20.0 - Paranoid schizophrenia - Subjective Interval history: No acute events. The patient's sugars continue to be elevated. He has had no episodes of rectal bleed. No fever. - Constitutional Vitals: Temp Pulse Resp BP 98.4 F 94 18 139/99 05/12/17 08:23 05/12/17 08:23 05/12/17 08:23 05/12/17 08:23 General appearance: Present: cooperative, A&O X 3, morbidly obese, pleasant, no acute distress, answers questions appropriately Exam: GEN: NAD CVS: RRR. S1, S2, No m/r/g RESP: CTAB ABD: Soft, NT, ND, +BS EXT: No edema. 2+ DP. No rashes NEURO: Nonfocal Internal Medicine: Result - Labs CBC & Chem 7: 05/11/17 13:02 05/11/17 13:02 Labs: Short CBC 05/11/17 Range/Units 13:02 WBC 6.9 (4.3-11.1) K/mcL Hgb 14.9 (12.9-16.9) g/dL Hct 43.4 (37.5-50.1) % Plt Count 192 (140-400) K/mcL Neutrophils # 4.2 (1.6-8.9) K/mcL BMP 05/11/17 13:02 Sodium 130 L Potassium 3.8 Chloride 97 L Carbon Dioxide 28 BUN 17 Creatinine 0.95 Glucose 289 H Calcium 9.5 - VTE Reasons for not Prescribing Prophylaxis: Treatment not Indicated - Low risk for VTE Consult Discharge Plan - Plan Referrals: NONE,PCP [Primary Care Provider] -
[2017-05-12 09:41] LABS: Chol/HDL Ratio 9.4 (0-4.9); Cholesterol 385 mg/dL (< 200); HDL Cholesterol 41 mg/dL (40-59); Triglycerides 949 mg/dL (< 150)
[2017-05-12 10:12] LABS: Hemoglobin A1C 9.1 %
--- NOTE | 2017-05-12 10:17 | Psychiatry Progress Note ---
Date of Encounter: 05/12/17 Time of Encounter: 09:40 Subjective Interval history: Patient was in bed sleeping when I went to see him. He stated he was happy in bed and peaceful there and did not want to come out of his room quite yet. He told me that his visit with his daughter "it went really well. It was nice to meet her too". He states that they had a good conversation and the tension went away after being with them for a while. He states that he felt much less anxious and was feeling much more optimistic. He denied any visual hallucinations. He denied any suicidal/homicidal ideations. He is feeling much less depressed and anxious. He denies any side effects of his medications. He does acknowledge hearing voices currently that he says are questioning him and his decisions that he made in life. I questioned them as to whether they are hallucinations versus his conscious thought. He tells me they are external voices to himself, not his thoughts. Again, he reiterates that they are always there and have never gone away with any medications. They have diminished, but are still there. I spoke to him about potentially trying Clozaril when he returns to [place], while he is waiting for the legal issues to get resolved in his potential return to [place]. 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 I explained to him that it was a slow process to convert him over, that it might be helpful with his auditory hallucinations were nothing else has ever helped them in the past. I wrote the name of the medication down for him and told him I would remind him and put it in his discharge summary prior to him leaving. Review of Systems Psychiatric: Reports: depression, abnormal sleep pattern, auditory hallucinations, mood swings Objective: Exam Patient orientation: Yes Person, Yes Place, Yes Circumstance Level of alertness: Other (tired) Behavior: calm Psychomotor activity: Normal Eye contact: Maintains Eye Contact Mood description: Euthymic/stable Affect description: congruent with mood Speech pattern: Normal rate, Normal rhythm, Normal tone Speech volume: Normal Thought process: Goal Oriented Thought content: Yes Intact Perceptual disturbances: Yes Auditory hallucinations Judgment: Fair Insight: Partial Results - Vital Signs Vital Signs: Temp Pulse Resp BP 98.4 F 94 18 139/99 05/12/17 08:23 05/12/17 08:23 05/12/17 08:23 05/12/17 08:23 - Labs Labs: Laboratory Results - last 24 hr 05/11/17 05/11/17 05/11/17 11:33 13:02 13:02 WBC 6.9 RBC 4.94 Hgb 14.9 Hct 43.4 MCV 87.9 MCH 30.2 MCHC 34.3 RDW 13.1 Plt Count 192 MPV 10.2 Immature Gran % 0.9 Seg Neutrophils % 60.3 Lymphocytes % 26.2 Monocytes % 8.2 Eosinophils % 3.8 Basophils % 0.6 Neutrophils # 4.2 Lymphocytes # 1.8 Monocytes # 0.6 Eosinophils # 0.3 Basophils # 0.0 Sodium 130 L Potassium 3.8 Chloride 97 L Carbon Dioxide 28 BUN 17 Creatinine 0.95 Est GFR ( Amer) > 60 Est GFR (Non-Af Amer) > 60 BUN/Creatinine Ratio 18 Glucose 289 H POC Glucose 244 H Calculated Osmolality 282 Calcium 9.5 Magnesium 1.7 Triglycerides Cholesterol LDL Cholesterol, Calc VLDL Cholesterol, Calc HDL Cholesterol Cholesterol/HDL Ratio 05/11/17 05/11/17 05/12/17 16:23 21:49 07:51 WBC RBC Hgb Hct MCV MCH MCHC RDW Plt Count MPV Immature Gran % Seg Neutrophils % Lymphocytes % Monocytes % Eosinophils % Basophils % Neutrophils # Lymphocytes # Monocytes # Eosinophils # Basophils # Sodium Potassium Chloride Carbon Dioxide BUN Creatinine Est GFR ( Amer) Est GFR (Non-Af Amer) BUN/Creatinine Ratio Glucose POC Glucose 235 H 307 H 288 H Calculated Osmolality Calcium Magnesium Triglycerides Cholesterol LDL Cholesterol, Calc VLDL Cholesterol, Calc HDL Cholesterol Cholesterol/HDL Ratio 05/12/17 07:53 WBC RBC Hgb Hct MCV MCH MCHC RDW Plt Count MPV Immature Gran % Seg Neutrophils % Lymphocytes % Monocytes % Eosinophils % Basophils % Neutrophils # Lymphocytes # Monocytes # Eosinophils # Basophils # Sodium Potassium Chloride Carbon Dioxide BUN Creatinine Est GFR ( Amer) Est GFR (Non-Af Amer) BUN/Creatinine Ratio Glucose POC Glucose Calculated Osmolality Calcium Magnesium Triglycerides 949 H Cholesterol 385 H LDL Cholesterol, Calc TNP VLDL Cholesterol, Calc TNP HDL Cholesterol 41 Cholesterol/HDL Ratio 9.4 H Assessment and Plan (1) Schizophrenia Current visit: Yes Status: Chronic Plan: Continue hospitalization, Close observation, Encourage participation in unit milieu, Group Therapy, Monitor sleep, Monitor appetite Risks, benefits, side effects, alternatives discussed w/pt: Yes (Discussed Clozaril) Patient agreeable to treatment: Yes Qualifiers: Schizophrenia type: paranoid schizophrenia Qualified Code(s): F20.0 - Paranoid schizophrenia (2) DM2 (diabetes mellitus, type 2) Current visit: Yes Status: Chronic Risks, benefits, side effects, alternatives discussed w/pt: Yes (Medical consult ordered for improving blood glucose levels) Qualifiers: Diabetes mellitus complication status: without complication Diabetes mellitus skilled nursing insulin use: with skilled nursing use Qualified Code(s): E11.9 - Type 2 diabetes mellitus without complications; Z79.4 - master electrician (current) use of insulin; Z79.4 - care home (current) use of insulin; Z79.4 - care home ( current) use of insulin; Z79.4 - master electrician (current) use of insulin (3) Rectal bleeding Current visit: Yes Status: Acute Consult Discharge Plan - Plan Referrals: [facility] [Other] - 05/18/17 12:45 pm (You will see Dr. Thornton on 05/18/2017 at 12:45 PM for outpatient psychiatric assessment and medication management services. You will then see the ACT nurse and ACT team case management staff on 05/18/2017 at 1:15 PM.)
[2017-05-12] MEDS: traZODone 50 MG TABLET PO SCH (20:45)
[2017-05-12] MEDS: hydrOXYzine pamoate 25 MG CAPSULE PO PRN (20:45)
[2017-05-12] MEDS: traZODone 50 MG TABLET PO PRN (20:46)
[2017-05-12] MEDS ORDERED: Insulin DETEMIR 100 UNIT/ML X5UNITS SQ SCH (21:00)
[2017-05-13] MEDS: Levothyroxine 25 MCG TABLET PO SCH (06:59)
[2017-05-13] MEDS ORDERED: Insulin DETEMIR 100 UNIT/ML X5UNITS SQ ONE (07:31)
[2017-05-13 07:35] LABS: Basophils % 0.6 %; Eosinophils # 0.2 K/mcL (0.0-0.6); Eosinophils % 3.8 %; Hematocrit 43.6 % (37.5-50.1); Hemoglobin 14.9 g/dL (12.9-16.9); Immature Granulocytes % 0.6 % (0-4); Lymphocytes # 1.9 K/mcL (0.6-4.6); Lymphocytes % 30.2 %; Mean Corpuscular HGB Conc 34.2 g/dL (31.6-35.5); Mean Corpuscular Volume 87.9 fL (83.0-100.0); Monocytes # 0.6 K/mcL (0.0-1.3); Monocytes % 9.8 %; Neutrophils # 3.5 K/mcL (1.6-8.9); Platelet Count 200 K/mcL (140-400); Red Blood Count 4.96 M/mcL (4.19-5.50); Red Cell Distribution Width 13.2 % (11.5-14.5)
[2017-05-13 08:15] LABS: Hemoglobin A1C 9.1 %
[2017-05-13] MEDS: Insulin LISPRO 300 UNITS/3 ML VIAL SQ SCH ×8 (08:32→20:53)
[2017-05-13] MEDS: Insulin DETEMIR 100 UNIT/ML X5UNITS SQ SCH ×2 (08:33→20:52)
[2017-05-13] MEDS: carBAMazepine 200 MG TABLET PO SCH ×2 (08:34→20:52)
[2017-05-13] MEDS: amLODIPine 5 MG TABLET PO SCH (08:34)
--- NOTE | 2017-05-13 10:29 | Internal Med Progress Note ---
Date of Encounter: 05/13/17 Time of Encounter: 07:15 - Assessment and plan (1) Rectal bleeding Current Visit: Yes Status: Acute Assessment and plan: Hemoglobin stable and hemodynamically stable. A GI consult has been ordered. Continue PPI. (2) HTN (hypertension) Current Visit: Yes Status: Chronic Assessment and plan: Blood pressure stable. Continue with amlodipine. Qualifiers: Hypertension type: essential hypertension Qualified Code(s): I10 - Essential (primary) hypertension (3) Dyslipidemia Current Visit: Yes Status: Acute Assessment and plan: Start statin (4) DM2 (diabetes mellitus, type 2) Current Visit: Yes Status: Chronic Assessment and plan: Increase Levemir to 60 units daily. Increase pre-meal boluses to 8 units of Humalog. Continue with insulin sliding scale. Continue with Accu-Cheks. Check hemoglobin A1c Qualifiers: Diabetes mellitus complication status: without complication Diabetes mellitus rn long term care insulin use: with fdc use Qualified Code(s): E11.9 - Type 2 diabetes mellitus without complications; Z79.4 - USP (current) use of insulin; Z79.4 - USP (current) use of insulin; Z79.4 - rn long term care ( current) use of insulin; Z79.4 - rn long term care (current) use of insulin (5) Schizophrenia Current Visit: Yes Status: Chronic Assessment and plan: Management per primary Qualifiers: Schizophrenia type: paranoid schizophrenia Qualified Code(s): F20.0 - Paranoid schizophrenia - Subjective Interval history: No acute events. The patient continues to have uncontrolled glucose. He was also found to have hypertriglyceridemia and elevated cholesterol. Otherwise stable - Constitutional Vitals: Temp Pulse Resp BP 97.2 F L 99 18 146/93 05/12/17 20:16 05/12/17 20:16 05/12/17 20:16 05/12/17 20:16 General appearance: Present: cooperative, A&O X 3, morbidly obese, pleasant, no acute distress, answers questions appropriately Exam: GEN: NAD CVS: RRR. S1, S2, No m/r/g RESP: CTAB ABD: Soft, NT, ND, +BS EXT: No edema. 2+ DP. No rashes NEURO: Nonfocal Internal Medicine: Result - Labs CBC & Chem 7: 05/13/17 07:20 05/11/17 13:02 Labs: Short CBC 05/13/17 Range/Units 07:20 WBC 6.3 (4.3-11.1) K/mcL Hgb 14.9 (12.9-16.9) g/dL Hct 43.6 (37.5-50.1) % Plt Count 200 (140-400) K/mcL Neutrophils # 3.5 (1.6-8.9) K/mcL - VTE Reasons for not Prescribing Prophylaxis: Treatment not Indicated - Low risk for VTE Consult Discharge Plan - Plan Referrals: NONE,PCP [Primary Care Provider] -
--- NOTE | 2017-05-13 13:21 | Psychiatry Progress Note ---
Date of Encounter: 05/13/17 Time of Encounter: 13:05 Subjective Interval history: Patient is in a good mood today. He tells me "I had another good visit last night with my daughter and I am feeling really good". He talks about feeling fairly positive about life. He finds himself not isolating as much and out talking to others on the unit. He feels his depression is going away. He denies any suicidal homicidal ideation. And today, he denies any auditory or visual hallucinations. He is sleeping well and periodically takes naps during the afternoon. We are still trying to organize his discharge back to [place]. It appears that his daughter and son-in-law are willing to help him out to support that. Review of Systems Psychiatric: Reports: depression, abnormal sleep pattern, auditory hallucinations, mood swings Objective: Exam Patient orientation: Yes Person, Yes Time, Yes Place Level of alertness: Alert Patient appearance: Appropriate Behavior: calm Psychomotor activity: Normal Eye contact: Maintains Eye Contact Mood description: Euthymic/stable Affect description: congruent with mood Speech pattern: Normal rate, Normal rhythm, Normal tone Speech volume: Normal Thought process: Intact, Linear, Goal Oriented Thought content: Yes Intact Judgment: Fair Insight: Partial Results - Vital Signs Vital Signs: Temp Pulse Resp BP 98.1 F 91 16 121/93 05/13/17 09:00 05/13/17 09:00 05/13/17 09:00 05/13/17 09:00 - Labs Labs: Laboratory Results - last 24 hr 05/12/17 05/12/17 05/13/17 16:12 20:43 07:20 WBC 6.3 RBC 4.96 Hgb 14.9 Hct 43.6 MCV 87.9 MCH 30.0 MCHC 34.2 RDW 13.2 Plt Count 200 MPV 10.0 Immature Gran % 0.6 Seg Neutrophils % 55.0 Lymphocytes % 30.2 Monocytes % 9.8 Eosinophils % 3.8 Basophils % 0.6 Neutrophils # 3.5 Lymphocytes # 1.9 Monocytes # 0.6 Eosinophils # 0.2 Basophils # 0.0 POC Glucose 274 H 309 H Est Mean Plasma Glucose Hemoglobin A1c 05/13/17 05/13/17 05/13/17 07:20 08:02 11:29 WBC RBC Hgb Hct MCV MCH MCHC RDW Plt Count MPV Immature Gran % Seg Neutrophils % Lymphocytes % Monocytes % Eosinophils % Basophils % Neutrophils # Lymphocytes # Monocytes # Eosinophils # Basophils # POC Glucose 293 H 254 H Est Mean Plasma Glucose 214 Hemoglobin A1c 9.1 H Assessment and Plan (1) Schizophrenia Current visit: Yes Status: Chronic Plan: Continue hospitalization, Close observation, Encourage participation in unit milieu, Group Therapy, Monitor sleep Risks, benefits, side effects, alternatives discussed w/pt: Yes (Continue current medications as written.) Patient agreeable to treatment: Yes Qualifiers: Schizophrenia type: paranoid schizophrenia Qualified Code(s): F20.0 - Paranoid schizophrenia (2) DM2 (diabetes mellitus, type 2) Current visit: Yes Status: Chronic Risks, benefits, side effects, alternatives discussed w/pt: Yes (Medical consult ordered for improving blood glucose levels) Qualifiers: Diabetes mellitus complication status: without complication Diabetes mellitus intermediate frame tender insulin use: with chcf use Qualified Code(s): E11.9 - Type 2 diabetes mellitus without complications; Z79.4 - manager intermediate (current) use of insulin; Z79.4 - manager intermediate (current) use of insulin; Z79.4 - [facility] ( current) use of insulin; Z79.4 - manager intermediate (current) use of insulin (3) Rectal bleeding Current visit: Yes Status: Acute Consult Discharge Plan - Plan Instructions: Schizophrenia (DC) Referrals: [facility], [Other] - 05/18/17 12:45 pm (You will see Dr. Thornton on 05/18/2017 at 12:45 PM for outpatient psychiatric assessment and medication management services. You will then see the ACT nurse and ACT team case management staff on 05/18/2017 at 1:15 PM.)
[2017-05-13] MEDS: hydrOXYzine pamoate 25 MG CAPSULE PO PRN (20:51)
[2017-05-13] MEDS: traZODone 50 MG TABLET PO SCH (20:52)
[2017-05-14] MEDS: Levothyroxine 25 MCG TABLET PO SCH (05:58)
[2017-05-14] MEDS: carBAMazepine 200 MG TABLET PO SCH ×2 (08:20→21:07)
[2017-05-14] MEDS: amLODIPine 5 MG TABLET PO SCH (08:20)
[2017-05-14] MEDS: Insulin LISPRO 300 UNITS/3 ML VIAL SQ SCH ×7 (08:21→21:05)
[2017-05-14] MEDS: Insulin DETEMIR 100 UNIT/ML X5UNITS SQ SCH ×2 (10:07→21:06)
--- NOTE | 2017-05-14 13:27 | Internal Med Progress Note ---
Date of Encounter: 05/14/17 Time of Encounter: 07:55 - Assessment and plan (1) Rectal bleeding Current Visit: Yes Status: Acute Assessment and plan: Hemoglobin stable and hemodynamically stable. A GI consult has been ordered. Continue PPI. (2) HTN (hypertension) Current Visit: Yes Status: Chronic Assessment and plan: Blood pressure stable. Continue with amlodipine. Qualifiers: Hypertension type: essential hypertension Qualified Code(s): I10 - Essential (primary) hypertension (3) Dyslipidemia Current Visit: Yes Status: Acute Assessment and plan: Continue with statin (4) DM2 (diabetes mellitus, type 2) Current Visit: Yes Status: Chronic Assessment and plan: We will give the patient Levemir 40 units twice a day. Increase pre-meal insulin to 12 units 3 times a day. Continue insulin sliding scale Watch for hypoglycemia. Continue Accu-Cheks. A1c noted at 9.1 Qualifiers: Diabetes mellitus complication status: without complication Diabetes mellitus penitentiary insulin use: with watermelon inspector use Qualified Code(s): E11.9 - Type 2 diabetes mellitus without complications; Z79.4 - prison (current) use of insulin; Z79.4 - technician terminal and repeater (current) use of insulin; Z79.4 - technician terminal and repeater ( current) use of insulin; Z79.4 - technician terminal and repeater (current) use of insulin (5) Schizophrenia Current Visit: Yes Status: Chronic Qualifiers: Schizophrenia type: paranoid schizophrenia Qualified Code(s): F20.0 - Paranoid schizophrenia - Subjective Interval history: No acute events. The patient continues to have uncontrolled glucose despite my increases in his long-acting insulin. He feels well. Otherwise stable - Constitutional Vitals: Temp Pulse Resp BP 97.5 F L 96 18 134/100 05/14/17 08:53 05/14/17 08:53 05/14/17 08:53 05/14/17 08:53 General appearance: Present: cooperative, A&O X 3, morbidly obese, pleasant, no acute distress, answers questions appropriately Exam: GEN: NAD CVS: RRR. S1, S2, No m/r/g RESP: CTAB ABD: Soft, NT, ND, +BS EXT: No edema. 2+ DP. No rashes NEURO: Nonfocal Internal Medicine: Result - Labs CBC & Chem 7: 05/13/17 07:20 05/11/17 13:02 - VTE Reasons for not Prescribing Prophylaxis: Treatment not Indicated - Low risk for VTE Consult Discharge Plan - Plan Referrals: NONE,PCP [Primary Care Provider] -
--- NOTE | 2017-05-14 14:17 | Gastroenterology Consult Note ---
<De AndaCiro Sofia - Last Filed: 05/14/17 14:11> Date of Encounter: 05/14/17 Time of Encounter: 12:40 - Assessment and plan (1) Rectal bleeding Current Visit: Yes Status: Acute Assessment and plan: Pt with 3 episodes of dark red blood with clots per rectum, with substantial amount in the bowl on 05/04, 05/05, and 05/06. He denies any further episodes of bleeding. Hgb WNL at 14.9. Planned for colonoscopy tomorrow, but pt states he is being discharged tomorrow morning back to [place], so we will hold on colonoscopy. Recommend pt having colonoscopy once he returns to [place]. If pt not being discharged tomorrow, then we will plan for colonoscopy tomorrow. Clear liquid diet today, no red or purple. NPO at midnight. If unable tolerate NuLytely please use MiraLAX prep. If not clear by 6 AM, give 2 tap water enemas. (2) Schizophrenia Current Visit: Yes Status: Chronic Qualifiers: Schizophrenia type: paranoid schizophrenia Qualified Code(s): F20.0 - Paranoid schizophrenia (3) DM2 (diabetes mellitus, type 2) Current Visit: Yes Status: Chronic Qualifiers: Diabetes mellitus complication status: without complication Diabetes mellitus jacquard loom card changer insulin use: with jacquard loom card changer use Qualified Code(s): E11.9 - Type 2 diabetes mellitus without complications; Z79.4 - wheelchair van operator first responder (current) use of insulin; Z79.4 - [facility] (current) use of insulin; Z79.4 - wheelchair van operator first responder ( current) use of insulin; Z79.4 - wheelchair van operator first responder (current) use of insulin - Time Spent With Patient Total time spent is greater than 50% in coordination of care (as documented) at patient's floor/unit and/or counseling patient: GI History of Present Illness - Data of Consult Patient: new to practice Consult date: 05/14/17 Requesting Physician: Radha Mendez MD - Consult Narrative Reason for consult: 3 episodes of rectal bleeding History of present illness: Mr. Plummer is a 51 year old male with PMHx of DM, HLD, HTN, schizophrenia who was admitted with uncontrolled diabetes and recent rectal bleeding. Reports BG usually ranges between 200-300 daily. He reports 3 episodes of dark red blood with clots per rectum, with substantial amount in the bowl on 05/04, 05/05 , and 05/06. He denies any further episodes of bleeding. He denies fever, chills , chest pain, shortness of breath, abdominal pain, nausea, vomiting, constipation, or diarrhea. He reports a colonoscopy 10-15 years ago with polyps. Hgb on 05/13/2017 was 14.9. He states he is leaving for [place] tomorrow morning. Procedures: Colonoscopy 10-15 years ago with polyps, per patient report. NSAIDs: None Anticoagulation: None Past Med Surg Social Fam HX - Past Medical History Medical history: diabetes, hyperlipidemia, hypertension Psychiatric history: schizophrenia, previous psychiatric hospitalization - Past Surgical History Surgical History: no surgical history - Social History Smoking Status: Never smoker Alcohol use: none Drug use: none - Family History Father Race: Family Member Ethnicity: Non- Living Status: Age at : 38 Cause of : Renal failure Hx Family Genitourinary Disorders: Yes (CKD) Mother Race: Family Member Ethnicity: Non- Living Status: Still Living Hx Family Medical Disorders: No Brother Race: Family Member Ethnicity: Non- Living Status: Still Living Hx Family Medical Disorders: No Sister Race: Family Member Ethnicity: Non- Living Status: Age at : 48 Cause of : Thyroid cancer Hx Family Cancer: Yes (Thyroid) - Gastrointestinal Gastrointestinal: Present: as per HPI - Constitutional Constitutional: as per HPI - EENT Eyes: as per HPI Ears: Present: as per HPI Nose, mouth and throat: Present: as per HPI - Cardiovascular Cardiovascular ROS: Present: as per HPI - Respiratory Respiratory IM: Present: as per HPI - Genitourinary Genitourinary: Absent: change in color, Urinary frequency - Neurological ROS Neurological GI: Present: as per HPI - Hematologic/Lymphatic Hematologic/Lymphatic pediatric: Present: as per HPI - Musculoskeletal Musculoskeletal ROS GI: Present: as per HPI - Integumentary Integumentary GI: Present: as per HPI - Psychiatric ROS Psychiatric GI: Present: as per HPI - Endocrine Endocrine IM: Present: as per HPI - Constitutional Vitals: Temp Pulse Resp BP 97.5 F L 96 18 134/100 05/14/17 08:53 05/14/17 08:53 05/14/17 08:53 05/14/17 08:53 General appearance: Present: cooperative, A&O X 3, no acute distress, answers questions appropriately - Head Head exam: Present: atraumatic, normocephalic - Eye Eye exam: Present: normal appearance, sclera anicteric - ENT ENT exam: Present: mucous membranes moist - Neck Neck exam general surgery: Present: normal inspection, trachea midline - Respiratory Respiratory exam: Present: CTAB. Absent: rales, rhonchi - Cardiovascular Cardiovascular exam: Present: RRR, +S1, +S2 - GI/Abdominal GI/Abdominal exam: Present: soft, no peritoneal signs. Absent: distended, firm , guarding, tenderness - Rectal Rectal exam: Present: deferred - Extremities Exam Extremities exam: Present: warm - Neurological Exam Neurological exam: Present: no focal deficits - Psychiatric Psychiatric exam: Present: normal affect, normal mood - Skin Skin exam: Present: dry, intact, normal color, warm Results - Labs CBC & Chem 7: 05/13/17 07:20 05/11/17 13:02 Labs: Last Result Calcium 9.5 mg/dL (8.6-10.3) 05/11/17 13:02 Triglycerides 949 mg/dL (< 150) H 05/12/17 07:53 Entire Visit Hgb 14.9 g/dL (12.9-16.9) 05/13/17 07:20 Hct 43.6 % (37.5-50.1) 05/13/17 07:20 Consult Discharge Plan - Plan Instructions: Schizophrenia (DC) Referrals: [facility] [Other] - 05/18/17 12:45 pm (You will see Dr. Thornton on 05/18/2017 at 12:45 PM for outpatient psychiatric assessment and medication management services. You will then see the ACT nurse and ACT team case management staff on 05/18/2017 at 1:15 PM.) <Mirta Andrews - Last Filed: 05/16/17 11:59> Date of Encounter: 05/14/17 Time of Encounter: 17:00 - Time Spent With Patient Total time spent is greater than 50% in coordination of care (as documented) at patient's floor/unit and/or counseling patient: GI History of Present Illness - Data of Consult Requesting Physician: Torsten Pitt MD - Consult Narrative History of present illness: Mr. Plummer is a 51 year old male - Constitutional Vitals: Temp Pulse Resp BP 97.8 F 91 18 145/97 05/16/17 09:00 05/16/17 09:00 05/16/17 09:00 05/16/17 09:00 Results - Labs CBC & Chem 7: 05/13/17 07:20 05/11/17 13:02 Labs: Last Result Calcium 9.5 mg/dL (8.6-10.3) 05/11/17 13:02 Triglycerides 949 mg/dL (< 150) H 05/12/17 07:53 Entire Visit Hgb 14.9 g/dL (12.9-16.9) 05/13/17 07:20 Hct 43.6 % (37.5-50.1) 05/13/17 07:20 - Attending Attestation I examined this patient and my medical decision-making was reviewed with the Resident Physician. I agree with the documented findings, disposition and treatment plan as described except to the extent set forth below.
[2017-05-14] MEDS: traZODone 50 MG TABLET PO SCH (21:07)
[2017-05-15] MEDS: Levothyroxine 25 MCG TABLET PO SCH (06:36)
[2017-05-15] MEDS: Insulin LISPRO 300 UNITS/3 ML VIAL SQ SCH ×7 (08:24→22:26)
[2017-05-15] MEDS: amLODIPine 5 MG TABLET PO SCH (08:53)
[2017-05-15] MEDS: carBAMazepine 200 MG TABLET PO SCH ×2 (08:53→22:25)
[2017-05-15] MEDS: Insulin DETEMIR 100 UNIT/ML X5UNITS SQ SCH ×2 (09:20→23:39)
[2017-05-15] MEDS ORDERED: Insulin DETEMIR 100 UNIT/ML X5UNITS SQ ONE (10:31)
--- NOTE | 2017-05-15 13:00 | Psychiatry Progress Note ---
Date of Encounter: 05/15/17 Time of Encounter: 13:00 Subjective Interval history: When asked the patient how is doing today states "I am alright". 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 He knows he needs to take care of it and get things ready in [place] in order to return to [place]. He stays hopeful that he will get back to [place] since he is now reconnecting with one of his daughters. He denies any suicidal/homicidal ideation. Overall his mood is stable. He states that he is hearing a voice talking to him right now telling him 'to quit talking '. Even though he is a little nervous, he knows he can make a trip back to [place] on his own and will be fine. Review of Systems Psychiatric: Reports: depression, abnormal sleep pattern, auditory hallucinations, mood swings Objective: Exam Patient orientation: Yes Person, Yes Time, Yes Place Level of alertness: Alert Patient appearance: Appropriate Behavior: nervous Psychomotor activity: Normal Eye contact: Maintains Eye Contact Mood description: Anxious Affect description: congruent with mood Speech pattern: Normal rate, Normal rhythm, Normal tone Speech volume: Normal Thought process: Intact, Goal Oriented Thought content: Yes Intact Judgment: Fair Insight: Partial Results - Vital Signs Vital Signs: Temp Pulse Resp BP 97.6 F 83 16 130/95 05/15/17 08:52 05/15/17 08:52 05/15/17 08:52 05/15/17 08:52 - Labs Labs: Laboratory Results - last 24 hr 05/14/17 05/14/17 05/15/17 16:20 20:42 02:55 POC Glucose 197 H 200 H 273 H 05/15/17 05/15/17 07:30 11:14 POC Glucose 259 H 232 H Assessment and Plan (1) Schizophrenia Status: Chronic Plan: Continue hospitalization, Close observation, Encourage participation in unit milieu, Group Therapy, Monitor sleep Risks, benefits, side effects, alternatives discussed w/pt: Yes Patient agreeable to treatment: Yes Qualifiers: Schizophrenia type: paranoid schizophrenia Qualified Code(s): F20.0 - Paranoid schizophrenia (2) DM2 (diabetes mellitus, type 2) Status: Chronic Risks, benefits, side effects, alternatives discussed w/pt: Yes (Medical consult ordered for improving blood glucose levels) Qualifiers: Diabetes mellitus complication status: without complication Diabetes mellitus equipment operator intermodal yard insulin use: with group home use Qualified Code(s): E11.9 - Type 2 diabetes mellitus without complications; Z79.4 - care home (current) use of insulin; Z79.4 - intermediate card tender (current) use of insulin; Z79.4 - care home ( current) use of insulin; Z79.4 - care home (current) use of insulin (3) Rectal bleeding Status: Acute Consult Discharge Plan - Plan Instructions: Schizophrenia (DC) Referrals: [facility] [Other] - 05/18/17 12:45 pm (You will see Dr. Thornton on 05/18/2017 at 12:45 PM for outpatient psychiatric assessment and medication management services. You will then see the ACT nurse and ACT team case management staff on 05/18/2017 at 1:15 PM.)
[2017-05-15] MEDS: traZODone 50 MG TABLET PO SCH (22:26)
[2017-05-15] MEDS: hydrOXYzine pamoate 25 MG CAPSULE PO PRN (23:34)
[2017-05-16] MEDS: Levothyroxine 25 MCG TABLET PO SCH (06:15)
[2017-05-16] MEDS: Insulin LISPRO 300 UNITS/3 ML VIAL SQ SCH ×2 (08:03→08:37)
[2017-05-16] MEDS: Insulin DETEMIR 100 UNIT/ML X5UNITS SQ SCH (08:03)
--- NOTE | 2017-05-16 08:28 | Discharge Summary ---
Date of Encounter: 05/16/17 Time of Encounter: 08:15 Diagnosis - Discharge Diagnosis (1) Schizophrenia Status: Chronic Qualifiers: Schizophrenia type: paranoid schizophrenia Qualified Code(s): F20.0 - Paranoid schizophrenia (2) DM2 (diabetes mellitus, type 2) Status: Chronic Qualifiers: Diabetes mellitus complication status: without complication Diabetes mellitus exterminator helper insulin use: with halfway use Qualified Code(s): E11.9 - Type 2 diabetes mellitus without complications; Z79.4 - termite control technician (current) use of insulin; Z79.4 - termite control technician (current) use of insulin; Z79.4 - retirement ( current) use of insulin; Z79.4 - termite control technician (current) use of insulin (3) Rectal bleeding Status: Acute Medications - Discharge Medications Insulin LISPRO [HumaLOG] 0 units SQ HS vial 04/26/17 [Rx] Insulin LISPRO [HumaLOG] 0 units SQ TIDAC vial 04/26/17 [Rx] amLODIPine [Norvasc] 5 mg PO DAILY tablet 04/26/17 [Rx] Atorvastatin [Lipitor] 20 mg PO HS tablet 05/16/17 [Rx] Haloperidol [Haldol] 5 mg PO Q4H PRN tablet 05/16/17 [Rx] Insulin DETEMIR [Levemir] 50 unit SQ BID [id number] 05/16/17 [Rx] Insulin LISPRO [HumaLOG] 0 units SQ HS vial 05/16/17 [Rx] Insulin LISPRO [HumaLOG] 0 units SQ TIDAC vial 05/16/17 [Rx] Insulin LISPRO [HumaLOG] 15 units SQ TIDAC vial 05/16/17 [Rx] Levothyroxine [Synthroid] 25 mcg PO DAILY@0630 tablet 05/16/17 [Rx] Omeprazole [PriLOSEC] 40 mg PO DAILY@0630 capsule.dr 05/16/17 [Rx] Paliperidone [Invega] 6 mg PO QAM tab.er.24 05/16/17 [Rx] Quetiapine Fumarate [Seroquel] 600 mg PO HS tablet 05/16/17 [Rx] carBAMazepine [Tegretol] 400 mg PO BID tablet 05/16/17 [Rx] hydrOXYzine pamoate [HydrOXYzine Pamoate] 50 mg PO TID PRN capsule 05/16/17 [Rx ] traZODone [TraZODone] 50 mg PO HS PRN tablet 05/16/17 [Rx] traZODone [TraZODone] 150 mg PO HS tablet 05/16/17 [Rx] 3 Allergy/AdvReac Type Severity Reaction Status Date / Time No Known Allergies Allergy Verified 04/18/17 23:49 Results Procedures and tests throughout hospitalization: Completed Lab Orders Category Date Time Status A1C [Hgb A1C] AM 0400 Lab 05/12/17 07:53 Completed Basic Metabolic Panel Stat Lab 05/11/17 13:02 Completed Complete Blood Count [HEME] AM 0400 Lab 05/13/17 07:20 Completed Complete Blood Count [HEME] Stat Lab 05/11/17 13:02 Completed Hgb A1C AM 0400 Lab 05/13/17 07:20 Completed Lipid Panel AM 0400 Lab 05/12/17 07:53 Completed Magnesium Stat Lab 05/11/17 13:02 Completed Thyroid Stimulating Hormone Routine Lab 05/01/17 13:56 Completed Provider Date of admission: 04/26/17 18:41 Primary care physician: PCP NONE Consults: 05/08/17 16:23 Consult to Hospitalist [CONS] Stat Consulting Provider: [facility] Reason for Consult: rectal bleeding with bright red blood, notified physician also diabetes poorly controlled Time Notified: 16:25 Call Completed: No 05/11/17 12:27 Consult to Hospitalist [CONS] Routine Consulting Provider: Davonte Morton Reason for Consult: rectal bleeding, uncontrolled diabetes Time Notified: 12:28 Call Completed: Yes 05/11/17 17:39 Consult to Electromedical Equipment Technician [CONS] Routine Comment: Reason for Consult: Patient requires diabetes education regarding diet compliance. Pt. states that his BG ranges between 200-300 for the past five years. Patient has knowledge deficit regarding role of carbohydrate control in diabetes mgmt. 05/11/17 17:42 Consult to Gastroenterology [CONS] Routine Consulting Provider: Arie Plunkett Reason for Consult: Patient is currently in 1A for depression and hallucinations. Pt. reports 3 episodes of rectal bleeding on previous Sunday/Sunday/Sunday and describes output as dark, clots, and substantial amount in toilet bowl. Denies occurrences since then. Denies previous incidents. Reports he had a colonoscopy 10 years ago which was positive for polyps. Pt. has a familial hx of multiple types of cancers. Call Completed: No Assessment and Plan - Patient/Caregiver Discharge Instructions Activity: resume usual activities as tolerated Diet: diabetic diet - Follow up Plan Follow up with: [facility] [Other] - 05/18/17 12:45 pm (You will see Dr. Thornton on 05/18/2017 at 12:45 PM for outpatient psychiatric assessment and medication management services. You will then see the ACT nurse and ACT team case management staff on 05/18/2017 at 1:15 PM.) Functional capacity at discharge: independent ambulation Overall status at discharge: patient is back to baseline Disposition: Home, Self-Care Hospital Course Hospital course: Mr. Plummer is a 51 year old male who was admitted after presenting to the ED after coming to [facility] from [place] on a bus, as experiencing auditory hallucinations and thoughts of suicide after not being compliant in taking his medications. His medications were verfied and he was restarted on them. He was found to have a conservator in [place] but did not want to return. He had been in senior care in [place] and his had him. He had not seen his daughters in 10+ years and was wanting to see them. They live in the [facility]. 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 His insulin doses were adjusted by the hospitalist. He continued to say he was suicidal and focused on seeing his daughters. The social media designer was able to locate one of his daughters that was willing to talk to him. He talked about hearing voices all the time and no antipsychotics at any dose has ever been able to get them to go away. His auditory hallucinations seemed to correlate with his mood and if he was getting what he wanted with his daughter regarding meetings as well as thoughts and plans regarding his return to [place]. He had been uncooperative in agreeing to return to [place], but finally understood that unless he returned to [place], handled things appropriately with the courts and was assigned a new conservator in [place], he would never be able to have the future he was wanting in [place] near family/daughters. He agreed to return to [place]. His sister and conservator were aware of the situation. He denied being suicidal. He stated he was hopeful after meeting with one f his daughters and wanted to get things legally resolved in [place] to potentially get moved back to [place]. He stated he still heard auditory hallucinations, but they were not upsetting for him. He told me once that the voices kept him company at times. I discussed with him that he may want to try Clozaril to use a single agent with possible resolution of his symptoms. He should talk to his psychiatrist in [place] to discuss this further. He was discharged with a bus ticket to return to [place]. He denied SI/SIB/HI , Visual Hallucinations. His mood had improved and he was stable not feeling depressed. He verbalized understanding his medications as they were the same as what he had been taking. Time spent discussing smoking cessation with patient: 3 to 10 minutes Does patient wish to continue nicotine replacement upon disc: No (NA) - Time Spent with Patient Total time spent providing and/or coordinating discharge services: 25 min Less than 30 minutes Quality - Multiple Antipsychotics Patient discharged on 2 or more antipsychotic medications: Yes - Justification Documentation of: Other justification (Previous medication regimen prior to admission that has been the only thing that helped stabilize him as much as possible thus far.) - Additional Details Additional Details: I spoke with the patient about Clozaril several times. Suggested that he may what to talk to his provider about it in [place] to simplify his med regimen and help with his treatment resistant auditory hallucinations. I explianed to him that the conversion was a time lengthy process and required blood work, but that he would have time to try it prior to his planned return to [place]. Procedures - Procedures Procedures: Medication Management, Crisis Stabilization, Supportive Therapy, Group Therapy, Psychoeducational Therapy Mental Status Exam - Mental Status Exam Patient orientation: Yes Person, Yes Time, Yes Place, Yes Circumstance Level of alertness: Alert Patient appearance: Appropriate Behavior: calm Psychomotor activity: Normal Eye contact: Maintains Eye Contact Mood description: Anxious (mildly) Affect description: congruent with mood Speech pattern: Normal rate, Normal rhythm, Normal tone Speech Volume: Normal Thought process: Logical, Linear, Goal Oriented Thought Content: Yes Intact Perceptual Disturbances: Yes Auditory hallucinations (Non-intrusive, ego syntonic) Judgment: Good Insight: Partial
[2017-05-16] MEDS: amLODIPine 5 MG TABLET PO SCH (08:35)
[2017-05-16] MEDS: carBAMazepine 200 MG TABLET PO SCH (08:36)
[2017-05-16 09:59] VITALS: BP 145/97
--- NOTE | 2017-05-16 12:13 | Internal Med Progress Note ---
Date of Encounter: 05/16/17 Time of Encounter: 09:10 - Assessment and plan (1) Schizophrenia Current Visit: Yes Status: Chronic Qualifiers: Schizophrenia type: paranoid schizophrenia Qualified Code(s): F20.0 - Paranoid schizophrenia (2) HTN (hypertension) Current Visit: Yes Status: Chronic Qualifiers: Hypertension type: essential hypertension Qualified Code(s): I10 - Essential (primary) hypertension (3) DM2 (diabetes mellitus, type 2) Current Visit: Yes Status: Chronic Qualifiers: Diabetes mellitus complication status: without complication Diabetes mellitus director long term care insulin use: with chcf use Qualified Code(s): E11.9 - Type 2 diabetes mellitus without complications; Z79.4 - retirement (current) use of insulin; Z79.4 - retirement (current) use of insulin; Z79.4 - ad terminal makeup operator ( current) use of insulin; Z79.4 - ad terminal makeup operator (current) use of insulin (4) Rectal bleeding Current Visit: Yes Status: Acute (5) HLD (hyperlipidemia) Current Visit: Yes Status: Chronic Qualifiers: Hyperlipidemia type: pure hypercholesterolemia Qualified Code(s): E78.00 - Pure hypercholesterolemia, unspecified; E78.0 - Pure hypercholesterolemia - Subjective Interval history: Seen and evaluated in the hallway in the psych unit. Patient is dressed up states that he is ready to be discharged home by the psychiatric is. Medicine was consulted for management of diabetes. Patient has a PCP who manages his diabetes. Recommend continued follow-up with his PCP. GI was consulted for his rectal bleed and seems to have been planning for a colonoscopy. This may be done as outpatient since patient is hemodynamically stable and his hemoglobin is stable. Thank you for your consult. - Constitutional Vitals: Temp Pulse Resp BP 97.8 F 91 18 145/97 05/16/17 09:00 05/16/17 09:00 05/16/17 09:00 05/16/17 09:00 General appearance: Present: cooperative, A&O X 3, morbidly obese, pleasant, no acute distress, answers questions appropriately - Head Head exam: Present: atraumatic, normocephalic - Eye Eye exam: Present: PERRL, conjuntiva pink, sclera anicteric Pupils: Present: PERRL - Neck Neck exam general surgery: Present: supple, trachea midline. Absent: lymphadenopathy - Respiratory Respiratory exam: Present: CTAB. Absent: accessory muscle use, rales, rhonchi, wheezes - Cardiovascular Cardiovascular exam: Present: RRR, +S1, +S2. Absent: diastolic murmur, gallop, rubs, systolic murmur - GI/Abdominal GI/Abdominal exam: Present: normal bowel sounds, soft, no peritoneal signs. Absent: distended, tenderness - Extremities Exam Extremities exam: Present: warm, radial pulses palpable and symmetrical. Absent : calf tenderness, cyanotic, pedal edema - Neurological Exam Neurological exam: Present: alert, CN II-XII intact, oriented X3, no focal deficits. Absent: pronater drift, facial droop, speech deficit - Skin Skin exam: Present: dry, intact Internal Medicine: Result - Labs CBC & Chem 7: 05/13/17 07:20 05/11/17 13:02 - VTE Reasons for not Prescribing Prophylaxis: Treatment not Indicated - Low risk for VTE Consult Discharge Plan - Plan Instructions: Schizophrenia (DC) Referrals: [email or web address] [Other] - 05/18/17 12:45 pm (You will see Dr. Thornton on 05/18/2017 at 12:45 PM for outpatient psychiatric assessment and medication management services. You will then see the ACT nurse and ACT team case management staff on 05/18/2017 at 1:15 PM.)
--- NOTE | 2017-05-17 08:53 | Psychiatry Progress Note ---
Date of Encounter: 05/14/17 Time of Encounter: 17:35 Subjective Interval history: Late entry/Note was not completed on day of encounter but encounter did occur and documentation present from encounter for note: When I met with the patient today he told me "I'm good". He was seen by medical this morning and his insulin doses are being adjusted secondary to his continued high glucose levels. He is going to get a high dose of the long- acting insulin tonight. It had been thought that he would possibly discharged tomorrow but with these changes in his medications and wind to monitor him that will be postponed. There is concern that with a high dose of long-acting insulin that he might get hypoglycemic. We want to make sure that he does not get hypoglycemic on the bus ride back to [place]. He tells me he is sleeping fine his mood is stable and that he is ready to go. He acknowledges auditory hallucinations but it state, "in a way, they kim keep me company". He denies any visual hallucinations. Review of Systems Psychiatric: Reports: depression, abnormal sleep pattern, auditory hallucinations, mood swings Objective: Exam Patient orientation: Yes Person, Yes Time, Yes Place Level of alertness: Alert Patient appearance: Appropriate Behavior: calm Psychomotor activity: Normal Eye contact: Maintains Eye Contact Mood description: Euthymic/stable Affect description: congruent with mood Speech pattern: Normal rate, Normal rhythm, Normal tone Speech volume: Normal Thought process: Intact Thought content: Yes Intact Perceptual disturbances: Yes Auditory hallucinations Judgment: Fair Insight: Partial Results - Vital Signs Vital Signs: Temp Pulse Resp BP 98.1 F 91 16 121/93 05/13/17 09:00 05/13/17 09:00 05/13/17 09:00 05/13/17 09:00 Assessment and Plan (1) Schizophrenia Status: Chronic Plan: Continue hospitalization, Close observation, Encourage participation in unit milieu, Group Therapy, Monitor sleep Risks, benefits, side effects, alternatives discussed w/pt: Yes (discharging in 2 days back to [place]) Patient agreeable to treatment: Yes Qualifiers: Schizophrenia type: paranoid schizophrenia Qualified Code(s): F20.0 - Paranoid schizophrenia (2) DM2 (diabetes mellitus, type 2) Status: Chronic Risks, benefits, side effects, alternatives discussed w/pt: Yes (Medical consult ordered for improving blood glucose levels) Qualifiers: Diabetes mellitus complication status: without complication Diabetes mellitus patient accounts manager insulin use: with patient accounts manager use Qualified Code(s): E11.9 - Type 2 diabetes mellitus without complications; Z79.4 - nursing home (current) use of insulin; Z79.4 - nursing home (current) use of insulin; Z79.4 - nursing home ( current) use of insulin; Z79.4 - clean rice grader and reel tender (current) use of insulin (3) Rectal bleeding Status: Acute Consult Discharge Plan - Plan Instructions: Schizophrenia (DC) Referrals: [email or web address] [Other] - 05/18/17 12:45 pm (You will see Dr. Thornton on 05/18/2017 at 12:45 PM for outpatient psychiatric assessment and medication management services. You will then see the ACT nurse and ACT team case management staff on 05/18/2017 at 1:15 PM.)
== END 2017-05-16 09:50 | disposition home or self-care (01) | DRG 885 ==
LOC: 1ANU 18:41 → SUATTDRO 18:41
PROVIDERS: ADMIT Student in an Organized Health Care Education/Training Program; ATTEND Internal Medicine